=== PATIENT | female | born 1955 | race Caucasian/White ===

== ENCOUNTER 2023-01-13 08:25 | Inpatient (IN) ==
--- NOTE | 2022-12-31 08:46 | PAT Medication Instructions ---
Medication Instructions Date of Service December 31, 2022 Home Medications allopurinol 100 mg tablet 100 mg PO HS baclofen 20 mg tablet 20 mg PO BID PRN Muscle Pain famotidine 40 mg tablet 40 mg PO BID fenofibrate nanocrystallized 145 mg tablet (Tricor) 145 mg PO HS hydrochlorothiazide 25 mg tablet 25 mg PO HS hydroxyzine HCl 10 mg tablet 10 mg PO BID insulin detemir U-100 100 unit/mL (3 mL) subcutaneous pen (Levemir FlexPen) 25 unit subcut HS lamotrigine 250 mg tablet,extended release 24 hr 250 mg PO HS levothyroxine 112 mcg tablet 112 mcg PO HS liraglutide 0.6 mg/0.1 mL (18 mg/3 mL) subcutaneous pen injector (Victoza 2-Omar) 0.6 mg subcut QAM melatonin 10 mg tablet 20 mg PO HS PRN Sleep metoprolol succinate 100 mg tablet,extended release 24 hr 100 mg PO HS pioglitazone 15 mg tablet 15 mg PO HS rosuvastatin 20 mg tablet 20 mg PO HS sertraline 200 mg capsule 200 mg PO HS STOP taking 48 hours before surgery fenofibrate nanocrystallized 145 mg tablet (Tricor) 145 mg PO HS DO NOT take the morning of surgery baclofen 20 mg tablet 20 mg PO BID PRN Muscle Pain liraglutide 0.6 mg/0.1 mL (18 mg/3 mL) subcutaneous pen injector (Victoza 2-Omar) 0.6 mg subcut QAM hydroxyzine HCl 10 mg tablet 10 mg PO BID Take morning of surgery With a small sip of water, OTHERWISE NOTHING TO EAT OR DRINK AFTER MIDNIGHT: famotidine 40 mg tablet 40 mg PO BID Take evening before surgery allopurinol 100 mg tablet 100 mg PO HS baclofen 20 mg tablet 20 mg PO BID PRN Muscle Pain (if needed) famotidine 40 mg tablet 40 mg PO BID hydrochlorothiazide 25 mg tablet 25 mg PO HS hydroxyzine HCl 10 mg tablet 10 mg PO BID insulin detemir U-100 100 unit/mL (3 mL) subcutaneous pen (Levemir FlexPen) 25 unit subcut HS lamotrigine 250 mg tablet,extended release 24 hr 250 mg PO HS levothyroxine 112 mcg tablet 112 mcg PO HS melatonin 10 mg tablet 20 mg PO HS PRN Sleep (if needed) metoprolol succinate 100 mg tablet,extended release 24 hr 100 mg PO HS pioglitazone 15 mg tablet 15 mg PO HS rosuvastatin 20 mg tablet 20 mg PO HS sertraline 200 mg capsule 200 mg PO HS Other Notes If you have any questions please call us at [phone] or [phone] or [phone] or [phone]
--- NOTE | 2022-12-31 12:57 | Anesthesiology Consultation ---
Date of Service December 31, 2022 Assessment & Plan (1) Encounter for pre-operative examination: - Check BSG AM DOS - COVID screening: Per assessment on 12/31: No known COVID-19 positive contacts or current COVID-19 related symptoms. Travel screen negative. Patient Covid positive 10/10/22 (home test)- symptoms at time of body aches, cough, loss of smell/taste > resolved. DOS greater than 90 days after Covid positive infection. At surgeon discretion if preop Covid testing being done. - Cardiology visit (11/07/22): "Prior to this visit metoprolol succinate has been increased to 100mg daily for complaints of palpitations/SVT. She did note improvement.. ECG reviewed. This indicates sinus rhythm with heart rate of 71. Poor Rwave progression is noted but not new.. Palpitations/SVT remained well controlled with use of beta amanda.. No evidence of volume overload or heart failure.. An echocardiogram will be obtained prior to her next office visit to reevaluate EF and wall motion." 1 year follow-up recommended. Chart Review Chart Review: Acceptable Risk for Surgery and Patient seen in Pre Admission Testing Teaching & Discussion Pre-Anesthesia Teaching/Discussion Notes: Instructed NPO after midnight before surgery,except medications with 15 cc of water. Medication instructions provided according to the PAT guidelines. History Surgery Operation Date: 01/13/23 10:35 Proposed Procedures p L4-L5 Decompression and Fusion, Spinal Cord Monitoring - Richard Oconnor DO Height/Weight Height: 5 ft 5 in Weight: 113.2 kg Allergies Allergy/AdvReac Type Severity Reaction Status Date / Time povidone-iodine Allergy Intermediate blisters Verified 12/31/22 08:47 [From Betadine] (with prolonged use) Medications Home Medications Medication Instructions Recorded Confirmed Last Taken allopurinol 100 mg tablet 100 mg PO HS 12/30/22 12/30/22 Unknown baclofen 20 mg tablet 20 mg PO BID PRN Muscle Pain 12/30/22 12/30/22 Unknown famotidine 40 mg tablet 40 mg PO BID 12/30/22 12/30/22 Unknown fenofibrate nanocrystallized 145 145 mg PO HS 12/30/22 12/30/22 Unknown mg tablet (Tricor) hydrochlorothiazide 25 mg tablet 25 mg PO HS 12/30/22 12/30/22 Unknown hydroxyzine HCl 10 mg tablet 10 mg PO BID 12/30/22 12/30/22 Unknown insulin detemir U-100 100 unit/mL 25 unit subcut HS 12/30/22 12/30/22 Unknown (3 mL) subcutaneous pen (Levemir FlexPen) lamotrigine 250 mg tablet,extended 250 mg PO HS 12/30/22 12/30/22 Unknown release 24 hr levothyroxine 112 mcg tablet 112 mcg PO HS 12/30/22 12/30/22 Unknown liraglutide 0.6 mg/0.1 mL (18 mg/3 0.6 mg subcut QAM 12/30/22 12/30/22 Unknown mL) subcutaneous pen injector (Victoza 2-Omar) melatonin 10 mg tablet 20 mg PO HS PRN Sleep 12/30/22 12/30/22 Unknown metoprolol succinate 100 mg 100 mg PO HS 12/30/22 12/30/22 Unknown tablet,extended release 24 hr pioglitazone 15 mg tablet 15 mg PO HS 12/30/22 12/30/22 Unknown rosuvastatin 20 mg tablet 20 mg PO HS 12/30/22 12/30/22 Unknown sertraline 200 mg capsule 200 mg PO HS 12/30/22 12/30/22 Unknown Past Medical History Medical History Anxiety and depression Arthritis Bipolar disorder Chronic kidney disease, stage 3 Diabetes mellitus, type 2 IDDM GERD (gastroesophageal reflux disease) History of COVID-19 Dx 10/10/22 (home test), symptoms resolved Hyperlipidemia Hypothyroidism Migraine SVT (supraventricular tachycardia) Follows with Lily Corrales Exercise / Class Metabolic Activity II 4-5 Yardwork/Stairs/Walk up hill (one FS (no CP, no SOB)) Past Family History Family History Other No family history of adverse response to anesthesia Past Surgical History Surgical History Fusion of spine cervical (good rom) H/O total hysterectomy History of appendectomy History of arthroscopy R/L knee History of bunionectomy + neuroma removed from right History of section x2 History of cholecystectomy History of colonoscopy History of ear surgery Right ear x5 (fistulas removed) History of tonsillectomy and adenoidectomy History of tooth extraction Neuroma removed left foot Past Anesthesia History No Hx of Anesthesia Complications and No Family Hx of Anesthesia Complications History of PONV No Hx of Motion Sickness and History of PONV (Single episode) Social History Smoking Status: Never smoker Do You Dip or Chew Tobacco: No Hx Alcohol Use: No Hx Substance Use: No substance use type: does not use Review of Systems Patient denies chest pain, shortness of breath, dyspnea on exertion, fever, chills, cough, wheezing, palpitations. Physical Exam Vital Signs VITALS BP 114/71 P 83 TEMP 98.1 SP02 96%RA RESP 16 PHYSICAL Full cervical extension range of motion. Full TMJ range of motion. TMD 4 finger breaths Mallampati Score 1 Dentition: intact Lungs: clear throughout to auscultation Cardiac: regular rate and rhythm, no murmurs noted Spine: normal Carotid arteries: negative bruit Extremities: no LE edema Lab Results Anesthesia Preop Results Results Anesthesia Widget: WBC 4.68 K/ul (4.8-10.8) L 12/31/22 Hgb 12.7 g/dl (12.0-16.0) 12/31/22 Hct 39.1 % (37.0-47.0) 12/31/22 Plt 267 K/uL (130-400) 12/31/22 Na 138 mmol/L (136-145) 12/31/22 K 3.9 mmol/L (3.5-5.1) 12/31/22 Cl 103 mmol/L (98-107) 12/31/22 CO2 30 mmol/L (21-32) 12/31/22 BUN 28 mg/dl (6-23) H 12/31/22 Creat 1.42 mg/dl (0.6-1.2) H 12/31/22 Glucose Level 139 mg/dl (70-99(Fasting)) H 12/31/22 PT 10.7 Seconds (9.0-12.0) 12/31/22 PTT 28.3 Seconds (21.0-31.0) 12/31/22 INR 1.0 (0.9-1.1) 12/31/22 HA1c 6.3 % (4.5-5.6) H 12/31/22 Urine Color Dark Yellow 12/31/22 Urine Appearance Clear (Clear) 12/31/22 Urine pH 6.5 (4.5-7.5) 12/31/22 Urine Specific Carl[place] 1.022 (1.000-1.030) 12/31/22 Urine Protein Negative (Negative) 12/31/22 Urine Glucose (UA) Negative (Negative) 12/31/22 Urine Ketones Trace (Negative) H 12/31/22 Urine Blood Negative (Negative) 12/31/22 Urine Nitrite Negative (Negative) 12/31/22 Urine Bilirubin Negative (Negative) 12/31/22 Urine Urobilinogen Negative (Negative) 12/31/22 Urine Leukocyte Esterase 2+ (Negative) H 12/31/22 Urine WBC (Auto) >30 /hpf (0-5) H 12/31/22 Urine RBC (Auto) 5-10 /hpf (0-4) H 12/31/22 Urine Hyaline Casts (Auto) 5-10 /lpf (0-5) H 12/31/22 Urine Epithelial Cells (Auto) 0-5 /lpf (0-5) 12/31/22 Urine Bacteria (Auto) Negative (Negative) 12/31/22 Blood Type O Positive 12/31/22 Antibody Screen NEGATIVE 12/31/22 Testing Electrocardiogram Date: 11/07/22 SR at 71bpm. PRWP. Chest X-Ray Date: 12/31/22 FINDINGS: PA and lateral chest radiographs are obtained. No prior studies are available for comparison at the time of dictation. The cardiomediastinal silhouette is unremarkable noting atherosclerotic calcification of the thoracic aorta. The lungs and pleural spaces are clear. There is no pneumothorax. The skeletal structures are osteopenic. The bony thorax appears intact. Fusion hardware is seen in the lower cervical spine. Cholecystectomy clips are noted in the right upper quadrant. IMPRESSION: No active disease in the chest. Other Testing L3is Monitor Date: 12/23/21 "[place] [address] (70), 0 A-fib/flutter/AT, PACs (<0.01%), PVCs (<0.01%), 0 pauses, 0 NSVT, 0 SVT, no symptoms" per 11/2022 cardiology office visit note. Attempts to obtain official report unsuccessful.
[~2023-01-13 08:25] MED LIST: ACETAMINOPHEN 500 MG TAB PO SCH; CeleBREX 200 MG CAP PO SCH; DEXAMETHASONE SOD INJ 4 MG/ML VIAL ONE; LIDOCAINE 2% 2 ML VIAL/AMP(20MG/ML) INFIL ONE; LR 15ML/HR IV SCH; LR 60ML/HR IV SCH; MIDAZOLAM HCL 1 MG/ML 2ML VIAL ONE; ONDANSETRON INJ 2 MG/ML 2 ML VIAL ONE; PROPOFOL IV EMULSION 10 MG/ML 20 ML VIAL IV ONE; ROCURONIUM BROMIDE 10 MG/ML 5 ML VIAL IV ONE; SUGAMMADEX SODIUM 200 MG/2 ML VIAL IV ONE; ceFAZolin 2000MG 2,000 MG/15 ML SYR IV SCH; fentaNYL citrate PF 100 MCG/2 ML VIAL ONE
--- NOTE | 2023-01-13 08:48 | History & Physical Bridge Note ---
Date of Service January 13, 2023 History & Physical Bridge Note I have examined the patient, reviewed the History & Physical and in the interval since the performance of the History & Physical I have noted the following changes of clinical significance: no changes noted
--- NOTE | 2023-01-13 08:49 | History & Physical Report ---
Date of Service January 13, 2023 Assessment & Plan (1) Neurogenic claudication due to lumbar spinal stenosis: Plan: L4-L5 decompression and fusion History of Present Illness Chief Complaint: Back and leg pain Primary Care Provider: EVA Edmonds This is a 67-year-old female presents with chronic persistent back and leg pain after failing extensive course of nonoperative care is here for surgical intervention. Allergies Allergy/AdvReac Type Severity Reaction Status Date / Time povidone-iodine Allergy Intermediate blisters Verified 01/13/23 08:40 [From Betadine] (with prolonged use) Home Medications Medication Instructions Recorded Confirmed Type allopurinol 100 mg tablet 100 mg PO HS 12/30/22 01/13/23 History baclofen 20 mg tablet 20 mg PO BID PRN Muscle Pain 12/30/22 01/13/23 History famotidine 40 mg tablet 40 mg PO BID 12/30/22 01/13/23 History fenofibrate nanocrystallized 145 145 mg PO HS 12/30/22 01/13/23 History mg tablet (Tricor) hydrochlorothiazide 25 mg tablet 25 mg PO HS 12/30/22 01/13/23 History hydroxyzine HCl 10 mg tablet 10 mg PO BID 12/30/22 01/13/23 History insulin detemir U-100 100 unit/mL 25 unit subcut HS 12/30/22 01/13/23 History (3 mL) subcutaneous pen (Levemir FlexPen) lamotrigine 250 mg tablet,extended 250 mg PO HS 12/30/22 01/13/23 History release 24 hr levothyroxine 112 mcg tablet 112 mcg PO HS 12/30/22 01/13/23 History liraglutide 0.6 mg/0.1 mL (18 mg/3 0.6 mg subcut QAM 12/30/22 01/13/23 History mL) subcutaneous pen injector (Victoza 2-Omar) melatonin 10 mg tablet 20 mg PO HS PRN Sleep 12/30/22 01/13/23 History metoprolol succinate 100 mg 100 mg PO HS 12/30/22 01/13/23 History tablet,extended release 24 hr pioglitazone 15 mg tablet 15 mg PO HS 12/30/22 01/13/23 History rosuvastatin 20 mg tablet 20 mg PO HS 12/30/22 01/13/23 History sertraline 200 mg capsule 200 mg PO HS 12/30/22 01/13/23 History Past Med/Surg History Medical History Anxiety and depression Arthritis Bipolar disorder Chronic kidney disease, stage 3 Diabetes mellitus, type 2 IDDM GERD (gastroesophageal reflux disease) History of COVID-19 Dx 10/10/22 (home test), symptoms resolved Hyperlipidemia Hypothyroidism Migraine SVT (supraventricular tachycardia) Follows with Lily Corrales Surgical History Fusion of spine cervical (good rom) H/O total hysterectomy History of appendectomy History of arthroscopy R/L knee History of bunionectomy + neuroma removed from right History of section x2 History of cholecystectomy History of colonoscopy History of ear surgery Right ear x5 (fistulas removed) History of tonsillectomy and adenoidectomy History of tooth extraction Neuroma removed left foot Family History Other No family history of adverse response to anesthesia Social History Smoking Status: Never smoker Second Hand Exposure: Yes (as a child); Do You Dip or Chew Tobacco: No; Hx Alcohol Use: No Hx Substance Use: No Preferred Language: Sammarinese Medical Supply Technician Required: No Beliefs That Will Affect Care: None Current Living Situation: Spouse Feels Safe at Home: Yes Safety Concerns: Feels Safe At This Time Assistive Devices: Glasses Physical Exam Physical Exam: Patient is alert and oriented Heart regular rhythm Lungs clear
[2023-01-13] MEDS ORDERED: BUPIVACAINE 0.25% PF 30 ML VIAL ONE (08:58)
[2023-01-13] MEDS ORDERED: BUPIVACAINE/EPINEPHRINE 0.25% 1:200,000 30 ML VIAL ONE (08:59)
[2023-01-13] MEDS ORDERED: ceFAZolin 330 MG/ML 1 GM VIAL ONE (08:59)
[2023-01-13] MEDS ORDERED: ePHEDrine sulfate 50 MG/ML AMP IV PRN (09:06)
[2023-01-13] MEDS ORDERED: ATROPINE SULFATE 0.1 MG/ML 10ML SYR IV PRN (09:06)
[2023-01-13] MEDS ORDERED: ONDANSETRON INJ 2 MG/ML 2 ML VIAL IV PRN ×2 (09:06→12:53)
[2023-01-13] MEDS ORDERED: FLOSEAL HEMOSTATIC MATRIX 10ML TOP ONE (10:05)
[2023-01-13] MEDS ORDERED: ePHEDrine sulfate 50 MG/ML SYR ONE (10:15)
[2023-01-13] MEDS ORDERED: DEXAMETHASONE SOD INJ 4 MG/ML VIAL ONE (10:21)
--- NOTE | 2023-01-13 11:08 | Fluoroscopy Report ---
FL lumbar spine 2-3V CLINICAL HISTORY: L4-5 DFI TECHNIQUE: 2 views were obtained with the C-arm in the OR with the above procedure. Total fluoroscopy time was 19.1 seconds. Radiation dose was 20.39 mGy. Comparison: None available at the time of this dictation. FINDINGS/IMPRESSION: Intraoperative images were obtained of L4-L5 decompression and fusion. Please correlate with intraoperative fluoroscopy and operative report. ACT 112: Negative or not required by law. Electronically signed by: Livan Lucero M.D. 01/13/2023 11:07 AM
--- NOTE | 2023-01-13 11:09 | Operative Report ---
Post Operative Report Pre & Post Diagnosis Operation Date: 01/13/23 09:35 Pre-Op Diagnosis: Lumbar spinal stenosis with neurogenic claudication Spondylolisthesis L4-5 Morbid obesityPost-Op Diagnosis: Same I identified the patient and participated in the time-out.: Yes Procedure Operation Date: 01/13/23 09:35 Actual Procedures 1. Lumbar decompression bilateral medial facetectomies and foraminotomies L3-L4 L4-5. #2 posterior spinal fusion L4-5 per #3 placement posterior instrumentation L4-5. #4 interbody fusion L4-5 per #5 placement of Spira 14 x 26 mm cage at L4-5. #6 placement locally harvested morselized autograft and posterior gutters. #7 placement I factor amount of the test in the interbody space and posterior gutters. Surgeon Richard Oconnor, DO Telecasting Technician Ruthy Smalls Estimated Blood Loss 100 Findings See Below The patient is 5 foot 5 weighing over 112 kg with a BMI in excess of 41. The patient's body habitus did contribute to significant technical difficulty required deepest retractors longer instruments in order to perform her procedure. This at least 50% increased operative time. Specimens none Indications This is a 67-year-old female who presents above-mentioned diagnosis after failing since course of nonoperative care is here for surgical invention. Description of Procedure Patient was met with identified informed consent obtained. Patient was then taken to the operative suite underwent ablation placed in a prone position the [place] table top Sergey frame. All bony promises well-padded eyes inspected to ensure no external pressure placed monitor at this point lumbar spine was prepped and draped in a sterile fashion. Sharp dissection with the assistance of Bovie cautery performed down to and exposing the lamina and transverse processes of L4-L5 bilaterally. From caudal to cephalad fashion complete laminectomy of L4 partial laminectomy L3 was performed including bilateral medial facetectomies and foraminotomies addressing severe spinal stenosis. Pedicle screws were then placed in L4-5 bilaterally with assistance of fluoroscopy and appropriate sized crystal placed. By way of transforaminal approach on the left complete discectomy of L4-L5 was performed endplates curetted to subcortically bone and a 14 x 26 mm Spira cage with I factor tapped in position. The rods were then compressed locked into final position bilaterally. The transverse processes of L4-5 burred to subcortical bleeding bone. I factor bone of the test and locally harvested morselized autograft was placed in the posterior gutters. 15 round JEANNETTE drain inserted. The incision was then closed with 1 Vicryl to fascia 2-0 Vicryl subcutaneously and 4 Monocryl for final skin closure. Steri-Strips sterile dressing placed. Patient awakened taken to PACU in stable condition. Please note spinal cord monitoring visualized at the procedure no changes noted. Lastly Ruthy Smalls was present at the entire surgery involved the patient positioning complex portions of the surgery and final skin closure. I attest to the content of the Intraoperative Record and any orders documented therein. Any exceptions are noted below.
[2023-01-13] MEDS: fentaNYL citrate PF 100 MCG/2 ML VIAL IV PRN ×4 (11:36→11:51)
[2023-01-13] MEDS ORDERED: HYDROmorphone INJ 0.5 MG/0.5 ML SYR ONE ×4 (11:51→12:04)
[2023-01-13] MEDS: HYDROmorphone INJ 2 MG/ML SYR/VIAL IV PRN ×4 (11:52→12:07)
[2023-01-13] MEDS ORDERED: LORazepam 2 MG/1 ML VIAL ONE (12:19)
[2023-01-13] MEDS ORDERED: LORazepam 2 MG/1 ML VIAL IM STA (12:22)
--- NOTE | 2023-01-13 12:30 | Anesthesiology Progress Note ---
Date of Service January 13, 2023 Anesthesia Post Procedure Vital Signs Vital Signs: Temp Pulse Pulse Resp BP Pulse Ox O2 Del Method 01/13/23 12:20 78 14 129/70 97 Nasal Cannula 01/13/23 12:10 70 16 118/55 L 97 Nasal Cannula 01/13/23 12:00 66 9 L 128/69 99 Nasal Cannula 01/13/23 11:50 69 14 139/75 98 Nasal Cannula 01/13/23 11:40 66 12 144/69 H 97 Oxymask 01/13/23 11:30 80 12 118/64 100 Oxymask 01/13/23 11:23 96.8 F L 81 12 143/62 H 100 Oxymask 01/13/23 09:03 97.9 F 78 18 148/64 H 98 Room Air O2 Flow Rate 01/13/23 12:20 3 01/13/23 12:10 3 01/13/23 12:00 3 01/13/23 11:50 3 01/13/23 11:40 6 01/13/23 11:30 6 01/13/23 11:23 12 01/13/23 09:03 Pain Intensity Back: Pain Intensity: 8 Transfer of Care Handoff Completed per policy Notes Mental Status: alert / awake / arousable and participated in evaluation Patient Amnestic to Procedure: Yes Nausea / Vomiting: adequately controlled Pain: adequately controlled and improving with treatment Airway Patency, RR, SpO2: stable & adequate BP & HR: stable & adequate Hydration State: stable & adequate Anesthetic Complications: no major complications apparent and Pt Satisfied with anesthetic care
[2023-01-13] MEDS ORDERED: SOD PHOSPHATE/SOD BIPHOSPHATE ENEMA 132 ML BTL PR PRN (12:53)
[2023-01-13] MEDS ORDERED: FAMOTIDINE 20 MG TAB PO PRN (12:53)
[2023-01-13] MEDS ORDERED: PHARMACY GLYCEMIC MGMT CONSULT PRN (12:53)
[2023-01-13] MEDS ORDERED: LORazepam 0.5 MG TAB PO PRN (12:53)
[2023-01-13] MEDS ORDERED: DO NOT ADMINISTER FLU VACCINE PRN (12:53)
[2023-01-13] MEDS ORDERED: PROMETHAZINE HCL 12.5 MG in SODIUM CHLORIDE 0.9% 50 ML IV PRN (12:53)
[2023-01-13] MEDS ORDERED: bisacodyL 10 MG SUPP PR PRN (12:53)
[2023-01-13] MEDS ORDERED: HYDROmorphone INJ 0.5 MG/0.5 ML SYR IV PRN (12:53)
[2023-01-13] MEDS ORDERED: ACETAMINOPHEN 1,000 MG/100 ML VIAL IV PRN (12:53)
[2023-01-13] MEDS ORDERED: NALOXONE HCL 0.4 MG/1 ML VIAL/CARP IV PRN (12:53)
[2023-01-13] MEDS ORDERED: diphenhydrAMINE Capsule 25 MG CAP PO PRN (12:53)
[2023-01-13] MEDS ORDERED: hydrOXYzine HCl 25 MG TAB PO PRN (12:53)
[2023-01-13] MEDS ORDERED: ONDANSETRON 4 MG OD TAB PO PRN (12:53)
[2023-01-13] MEDS ORDERED: traMADol HCL 50 MG TABLET PO PRN (12:53)
[2023-01-13] MEDS ORDERED: DO NOT ADMINISTER PNEUMOCOCCAL VACCINE PRN (12:53)
[2023-01-13] MEDS ORDERED: LORazepam 2 MG/1 ML VIAL IV PRN (12:53)
[2023-01-13] MEDS ORDERED: ACETAMINOPHEN 500 MG TAB PO PRN (12:53)
[2023-01-13] MEDS ORDERED: METOCLOPRAMIDE HCL INJ 5 MG/ML 2 ML VIAL IV PRN (12:53)
[2023-01-13] MEDS ORDERED: ALUMINUM/MAGNESIUM SUSP 30 ML UDC PO PRN (12:53)
[2023-01-13] MEDS ORDERED: MAGNESIUM HYDROXIDE SUSP 30 ML UDC PO PRN (12:53)
[2023-01-13] MEDS: SODIUM CHLORIDE 0.9% 1000ML 1,000 ML IV SCH ×2 (13:26→20:10)
[2023-01-13] MEDS ORDERED: GLUCOSE 10 TAB/TUBE PO PRN (14:00)
[2023-01-13] MEDS ORDERED: GLUCOSE 40% GEL 15 GM TUBE PO PRN (14:00)
[2023-01-13] MEDS ORDERED: GLUCAGON FOR INJ 1 MG VIAL IM PRN (14:00)
[2023-01-13] MEDS ORDERED: NovoLIN-N (NPH) PER UNIT CHARGE SQ ONE (14:00)
[2023-01-13] MEDS ORDERED: DEXTROSE 50% 50 ML SYRINGE IV PRN (14:00)
[2023-01-13] MEDS ORDERED: CARBOHYDRATES FOR HYPOGLYCEMIA PO PRN (14:00)
--- NOTE | 2023-01-13 14:07 | Consultation ---
Date of Consultation January 13, 2023 Assessment & Plan (1) Neurogenic claudication due to lumbar spinal stenosis: (2) Diabetes mellitus, type 2: (3) HTN (hypertension): (4) Hypothyroidism: (5) Chronic kidney disease, stage 3: (6) GERD (gastroesophageal reflux disease): Plan 67 year old female that presented to the [facility] today for an elective procedure under the care of Dr. Oconnor after failed conservative management for persistent back pain. She underwent an L4-L5 decompression and fusion surgery today. Intra-operatively, patient had 100 EBL. In the PACU, patient received Fentanyl 100mcg and Ativan 2 mg for pain. Pt is lying in her hospital bed in no apparent distress. She is snoring and somnolent; difficult to arouse, but once aroused she is able to answer some simple questions. She is on 3LNC and SpO2 93- 94%, will continue continuous pulse ox until more awake. Pt at bedside and able to answer all questions. Patient appears more puffy compared to typical presentation; not unusual postoperative. Patient does not wear a CPAP at home at baseline. Additional PMH includes: Gout, IDDM2, HTN, HLD, Hypothyroidism, and depression. Neurogenic claudication due to lumbar spinal stenosis: POD#0 s/p L4-L5 decompression fusion with Dr. Oconnor. Per ortho for pain control, wound care, anticoagulation and activities. Monitor H&H, preop hemoglobin 12.7 from 12/31 EBL 100 mL continue incentive spirometry when awake PT/OT when appropriate Diabetes mellitus type 2: Insulin-dependent Preop A1c 6.3 Takes Levemir, continue Takes Actos, and Victoza; hold while inpatient FSBS ACHS SSI while inpatient HTN: Takes HCTZ and metoprolol; continue Normotensive postoperatively HLD: Takes rosuvastatin; continue Hypothyroidism: Takes levothyroxine; continue Follow TSH as an outpatient CKD stage III: Preop creatinine 1.42; trend with a.m. labs GERD: Takes famotidine; continue Gout: Takes allopurinol; continue Depression: Takes sertraline; continue Disposition: PCP: EVA Contreras CODE STATUS: Full code VTE prophylaxis: Per admitting team I spent a total of 60 minutes coordinating, documenting, and providing care for this patient excluding time spent in the performance of separately billed services. All of the aforementioned completed while collaborating with the assigned attending physician for a full treatment plan. Please see their addendum for further details. Supervising Physician Co-Signing Physician Notes Ms. Colby is a 67 year old female with pmhx (per chart and spouse) of morbid obesity (BMI 41), SVT, IDDM-II (associated with HTN and HLP, c/b nephropathy), Hypothyroidism, CKD III b, GERD, gout, lumbar spinal stenosis with neurogenic claudication, Bipolar d/o and depression. She presented for planned elective surgery with Dr. Oconnor. She is POD # 0 s/p L4-L5 decompression and fusion with EBL of 100 mL. Post op she is recovering well. She is somnolent d/t medications (Fentanyl and Ativan) but arousable. She denies malaise, PERES, lightheadedness, f/c/n/v, CP, sob, and abdominal pain. She is snoring quite dramatically. Per she typically snores but not like this. She does not use NIPPV at home. PE Gen: Somnolent but arousable. NAD. Non-toxic. Obese. Head: NC AT Eyes: anicteric sclera, no conjunctival injection Nose: normal, patent nares Mouth: MMM Neck: supple, trachea midline. CV: RRR S1 S2 Pulm: CTA b/l anteriorly GI/abd: +BS, soft, NT, ND, no guarding. + obese. MSK: normal bulk and tone Ext: 1+ edema in all 4 extremities. Strong radial and dorsalis pedis pulses Neuro: moves all 4 limbs spontaneously, somnolent but arousable, no focal deficits Skin: visible skin is warm, dry, and without rash. Pt was not fully undressed for exam. Surgical site not inspected. # Spinal stenosis: POD #0 s/p L4-5 decompression, fusion standard post op care per surgical team DVT PPX per surgical team # somnolence: iatrogenic continuous pulse ox # IDDM: continue home regimen (Levemir 25 units hs, Liraglutide 0.6 mg sc q am, Pioglitazone 15 mg hs) once awake and taking po CDI for now # HTN: normotensive, continue home regimen (HCTZ 25 mg po hs, Metoprolol 100 mg po hs), analgesia # HLP: continue statin therapy, fenofibrate 145 mg hs, no indication to check a lipid panel at this time # Hypothyroidism: continue levothyroxine 112 mcg daily, no indication to check a TSH at this time # Bipolar d/o: stable, well controlled. Continue Lamotrigine 250 mg hs, Sertraline 200 mg hs Rest per attested note above History of Present Illness Requesting Physician: Dr. Oconnor Reason for Consultation: Post operative medical consultation Attending Physician: Richard Oconnor, DO History of Present Illness Ms. Colby is a 67 year old female that presented to the [facility] today for an elective procedure under the care of Dr. Oconnor after failed conservative management for persistent back pain. She underwent an L4-L5 decompression and fusion surgery today. Intra-operatively, patient had 100 EBL. In the PACU, patient received Fentanyl 100mcg and Ativan 2 mg for pain. Pt is lying in her hospital bed in no apparent distress. She is snoring and somnolent; difficult to arouse, but once aroused she is able to answer some simple questions. She is on 3LNC and SpO2 93-94%, will continue continuous pulse ox until more awake. Pt at bedside and able to answer all questions. Patient appears more puffy compared to typical presentation; not unusual postoperative. Patient does not wear a CPAP at home at baseline. Additional PMH includes: Gout, IDDM2, HTN, HLD, Hypothyroidism, and depression. [facility] Hospitalist service was consulted for post-operative medical management. Please see A/P for further details. Please contact [facility] Hospitalist service via [place] Text 27/01 with any questions. Allergies Allergy/AdvReac Type Severity Reaction Status Date / Time povidone-iodine Allergy Intermediate blisters Verified 01/13/23 08:40 [From Betadine] (with prolonged use) Home Medications Medication Instructions Recorded Confirmed Type allopurinol 100 mg tablet 100 mg PO HS 12/30/22 01/13/23 History baclofen 20 mg tablet 20 mg PO BID PRN Muscle Pain 12/30/22 01/13/23 History famotidine 40 mg tablet 40 mg PO BID 12/30/22 01/13/23 History fenofibrate nanocrystallized 145 145 mg PO HS 12/30/22 01/13/23 History mg tablet (Tricor) hydrochlorothiazide 25 mg tablet 25 mg PO HS 12/30/22 01/13/23 History hydroxyzine HCl 10 mg tablet 10 mg PO BID 12/30/22 01/13/23 History insulin detemir U-100 100 unit/mL 25 unit subcut HS 12/30/22 01/13/23 History (3 mL) subcutaneous pen (Levemir FlexPen) lamotrigine 250 mg tablet,extended 250 mg PO HS 12/30/22 01/13/23 History release 24 hr levothyroxine 112 mcg tablet 112 mcg PO HS 12/30/22 01/13/23 History liraglutide 0.6 mg/0.1 mL (18 mg/3 0.6 mg subcut QAM 12/30/22 01/13/23 History mL) subcutaneous pen injector (Victoza 2-Omar) melatonin 10 mg tablet 20 mg PO HS PRN Sleep 12/30/22 01/13/23 History metoprolol succinate 100 mg 100 mg PO HS 12/30/22 01/13/23 History tablet,extended release 24 hr pioglitazone 15 mg tablet 15 mg PO HS 12/30/22 01/13/23 History rosuvastatin 20 mg tablet 20 mg PO HS 12/30/22 01/13/23 History sertraline 200 mg capsule 200 mg PO HS 12/30/22 01/13/23 History oxycodone 5 mg tablet 5 mg PO Q6H PRN pain #30 tabs 01/13/23 Rx tramadol 50 mg tablet 50 mg PO Q6H PRN pain, moderate 01/13/23 Rx #30 tabs Patient History Medical History Anxiety and depression Arthritis Bipolar disorder Chronic kidney disease, stage 3 Diabetes mellitus, type 2 IDDM GERD (gastroesophageal reflux disease) History of COVID-19 Dx 10/10/22 (home test), symptoms resolved HTN (hypertension) Hyperlipidemia Hypothyroidism Migraine SVT (supraventricular tachycardia) Follows with [facility] Surgical History Fusion of spine cervical (good rom) H/O total hysterectomy History of appendectomy History of arthroscopy R/L knee History of bunionectomy + neuroma removed from right History of section x2 History of cholecystectomy History of colonoscopy History of ear surgery Right ear x5 (fistulas removed) History of tonsillectomy and adenoidectomy History of tooth extraction Neuroma removed left foot Family History Other No family history of adverse response to anesthesia Social History Smoking Status: Never smoker Second Hand Exposure: Yes (as a child); Do You Dip or Chew Tobacco: No; Hx Alcohol Use: No Hx Substance Use: No Preferred Language: German Inventory Control Specialist Required: No Beliefs That Will Affect Care: None Current Living Situation: Spouse Feels Safe at Home: Yes Safety Concerns: Feels Safe At This Time Assistive Devices: Glasses Review of Systems Review of Systems: Neuro: (-) Falls, trauma, slurred speech HEENT: (-) PERES, dizziness, dysphagia, visual or auditory changes CV: (-) CP, palpitations, swelling Resp: (-) SOB GI: (-) appetite changes, N/V/D, bowel changes : (-) urinary changes Skin: (-) rashes Psych: (-) anxiety, depression Physical Exam Physical Exam: See Dr. Purvis's physical examination in the addendum section for details Results & Data Vital Signs (Past 12 Hours) Vital Signs Temp Pulse Pulse Resp BP Pulse Ox O2 Del Method 01/13/23 13:48 36.4 C L 79 18 124/66 95 Nasal Cannula 01/13/23 13:22 36.7 C 79 18 121/54 L 93 Nasal Cannula 01/13/23 13:06 36.6 C 79 12 142/70 H 95 Nasal Cannula 01/13/23 12:30 36.6 C 73 12 119/60 99 Nasal Cannula 01/13/23 12:20 78 14 129/70 97 Nasal Cannula 01/13/23 12:10 70 16 118/55 L 97 Nasal Cannula 01/13/23 12:00 66 9 L 128/69 99 Nasal Cannula 01/13/23 11:50 69 14 139/75 98 Nasal Cannula 01/13/23 11:40 66 12 144/69 H 97 Oxymask 01/13/23 11:30 80 12 118/64 100 Oxymask 01/13/23 11:23 36.0 C L 81 12 143/62 H 100 Oxymask 01/13/23 09:03 36.6 C 78 18 148/64 H 98 Room Air O2 Flow Rate 01/13/23 13:48 3 01/13/23 13:22 3 01/13/23 13:06 2 01/13/23 12:30 3 01/13/23 12:20 3 01/13/23 12:10 3 01/13/23 12:00 3 01/13/23 11:50 3 01/13/23 11:40 6 01/13/23 11:30 6 01/13/23 11:23 12 01/13/23 09:03 Diagnostic Findings Lumbar Spine X-Ray 01/13/23 09:35 FL lumbar spine 2-3V CLINICAL HISTORY: L4-5 DFI TECHNIQUE: 2 views were obtained with the C-arm in the OR with the above procedure. Total fluoroscopy time was 19.1 seconds. Radiation dose was 20.39 mGy. Comparison: None available at the time of this dictation. FINDINGS/IMPRESSION: Intraoperative images were obtained of L4-L5 decompression and fusion. Please correlate with intraoperative fluoroscopy and operative report. Electronically signed by: Livan Lucero M.D. 01/13/2023 11:07 AM
[2023-01-13] MEDS: INSULIN ASPART PER UNIT CHARGE SC SCH ×3 (14:28→21:11)
--- NOTE | 2023-01-13 14:39 | Pharmacy Report ---
Pharmacy Glycemic Short Note 2 - Date of Service January 13, 2023 - Glycemic Short BSG Results (Last 24 hours): 01/13/23 01/13/23 01/13/23 09:04 11:25 13:38 POC Glucose 123 H 131 H 140 H OUTPATIENT ANTIDIABETIC REGIMEN: * Levemir 25 units HS * Actos 15 mg PO daily * Victoza 0.6 mg SQ daily * HbA1C = 6.3% (12/31/22) ASSESSMENT: * Ms Colby is a 67 y/o F with a PMH of T2DM who presents for spinal surgery. * Preop BSG was 123 mg/dL and postop BSG was 140 mg/dL. Patient is sedated after surgery. * Patient received dexamethasone 12 mg IV during surgery. * Since patient was sedated, will hold NPH. Move Lantus to dinnertime with a higher dose available for BSGs trending upwards after steroid administration. * Novolog weight-based stress 3 for steroid coverage. PLAN FOR INPATIENT GLYCEMIC CONTROL: * Hold outpatient oral diabetes medications * Basal insulin * Lantus 25 units SQ HS starting at dinner tonight (35 units if BSG > 160 mg/dL) * Bolus insulin * NovoLog per scale ACHS or Q6hrs while NPO * Goal Range: Low 110 mg/dL - High 140 mg/dL * Correction Factor: 20 mg/dL/unit * Nutritional / Prandial insulin per carb ratio of 1 unit per 5 grams CHO consumed
[2023-01-13] MEDS ORDERED: LANTUS PER UNIT CHARGE SC SCH ×3 (17:00→21:00)
[2023-01-13] MEDS: ceFAZolin 2000MG 2,000 MG/15 ML SYR IV SCH (17:45)
[2023-01-13] MEDS: DOCUSATE SODIUM/SENNA 50/8.6MG TAB PO SCH (20:59)
[2023-01-13] MEDS: hydroCHLOROthiazide 25 MG TAB PO SCH (20:59)
[2023-01-13] MEDS: FAMOTIDINE 40 MG TABLET PO SCH (20:59)
[2023-01-13] MEDS: LEVOTHYROXINE SODIUM 112 MCG TABLET PO SCH (20:59)
[2023-01-13] MEDS: FENOFIBRATE NANOCRYSTALLIZED 145 MG TABLET PO SCH (20:59)
[2023-01-13] MEDS: SERTRALINE HCL 100 MG TABLET PO SCH (20:59)
[2023-01-13] MEDS: allopurinoL 100 MG TAB PO SCH (20:59)
[2023-01-13] MEDS: METOPROLOL SUCC 50MG EXT REL TAB PO SCH (21:00)
[2023-01-13] MEDS ORDERED: PIOGLITAZONE HCL 15 MG TAB PO SCH (21:00)
[2023-01-13] MEDS: ROSUVASTATIN CALCIUM 20 MG TAB PO SCH (21:00)
[2023-01-13] MEDS: lamoTRIgine 100 MG TAB PO SCH (21:16)
[2023-01-13] MEDS: oxyCODONE HCL IR 5 MG TAB (IMMEDIATE RELEASE) PO PRN (21:23)
[2023-01-13] MEDS: HYDROmorphone INJ 1 MG/ML SYRINGE IV PRN (23:16)
[2023-01-14] MEDS: ceFAZolin 2000MG 2,000 MG/15 ML SYR IV SCH (00:26)
[2023-01-14] MEDS: INSULIN ASPART PER UNIT CHARGE SC SCH ×6 (00:27→20:49)
[2023-01-14] MEDS: SODIUM CHLORIDE 0.9% 1000ML 1,000 ML IV SCH (03:03)
[2023-01-14] MEDS: HYDROmorphone INJ 1 MG/ML SYRINGE IV PRN ×3 (03:24→21:58)
[2023-01-14] MEDS: POLYETHYLENE (MIRALAX) 17 GM PACK PO SCH ×4 (05:52→21:58)
[2023-01-14 06:21] LABS: Basophils # (auto) 0.01 K/uL (0-0.2); Basophils % (auto) 0.1 %; Eosinophils # (auto) 0.01 K/uL (0-0.50); Eosinophils % (auto) 0.1 %; Hematocrit (blood only) 33.5 % (37.0-47.0); Hemoglobin 10.9 g/dl (12.0-16.0); Immature Granulocytes # (auto) 0.06 K/uL (0.01-0.20); Immature Granulocytes % (auto) 0.6 %; Lymphocytes # (auto) 1.25 K/uL (1.2-3.4); Lymphocytes % (auto) 11.7 %; Mean Corpuscular Hemoglobin 29.9 pg (25.0-34.0); Mean Corpuscular Hgb Conc 32.5 g/dL (32.0-36.0); Mean Platelet Volume 10.7 fL (9.4-12.4); Monocytes # (auto) 0.99 K/uL (0.11-0.59); Monocytes % (auto) 9.3 %; Neutrophils # (auto) 8.32 K/uL (1.40-6.50); Neutrophils % (auto) 78.2 %; Platelet Count 235 K/uL (130-400); RDW Coefficient of Variation 13.9 % (11.5-14.5); RDW Standard Deviation 46.8 fL (36.4-46.3); Red Blood Count 3.64 M/uL (4.20-5.40); White Blood Count 10.64 K/ul (4.8-10.8)
[2023-01-14 06:49] LABS: BUN Creatinine Ratio 26.4 (10-20); Calcium 8.3 mg/dl (8.6-10.3); Creatinine Clr Calc Pharmacy 41.7 ml/min; Est GFR (Non-African American) 32.8 ml/min; Potassium 4.2 mmol/L (3.5-5.1)
[2023-01-14] MEDS: oxyCODONE HCL IR 5 MG TAB (IMMEDIATE RELEASE) PO PRN (07:28)
[2023-01-14] MEDS: FAMOTIDINE 40 MG TABLET PO SCH ×2 (07:28→20:25)
[2023-01-14] MEDS ORDERED: HYDROCODONE/ACETAMOPHEN 5/325MG TAB PO PRN ×2 (08:44)
--- NOTE | 2023-01-14 08:44 | Orthopedic Progress Note ---
Date of Service January 14, 2023 Assessment & Plan (1) Neurogenic claudication due to lumbar spinal stenosis: Plan: This time initiate physical therapy monitor JEANNETTE output hopefully discharge home in the next few days. I will transition her from oxycodone to hydrocodone. Admission and Anticipated Discharge Date Admission Date: January 13, 2023 Subjective Back pain controlled leg pain markedly improved Physical Exam Physical Exam: Patient is in bed. She is sitting up. She is comfortable. Discussing the testing. Results & Data Vital Signs (Past 12 Hours) Vital Signs Temp Pulse Resp BP Pulse Ox O2 Del Method 01/14/23 08:00 Room Air 01/14/23 07:34 36.6 C 81 18 130/68 95 Room Air 01/14/23 03:00 36.6 C 78 18 110/64 96 Room Air 01/13/23 23:00 36.4 C L 83 18 102/61 93 Room Air 01/13/23 20:56 84 119/69
--- NOTE | 2023-01-14 08:47 | Pharmacy Report ---
Pharmacy Glycemic Short Note 2 - Date of Service January 14, 2023 - Glycemic Short BSG Results (Last 24 hours): 01/13/23 01/13/23 01/13/23 09:04 11:25 13:38 Glucose POC Glucose 123 H 131 H 140 H 01/13/23 01/13/23 01/14/23 16:58 20:50 00:23 Glucose POC Glucose 161 H 170 H 164 H 01/14/23 01/14/23 01/14/23 04:29 05:58 08:05 Glucose 142 H POC Glucose 148 H 115 H OUTPATIENT ANTIDIABETIC REGIMEN: * Levemir 25 units HS * Actos 15 mg PO daily * Victoza 0.6 mg SC daily * HbA1C = 6.3% (12/31/22) ASSESSMENT: 01/14: * Patient received 42 units of insulin yesterday, 35 units basal + 7 units bolus. BSGs were: [phone] mg/dL. * Fasting BSG this AM is 115 mg/dL, well controlled. No further steroids ordered and expect steroid-induced hyperglycemia to wear off over the next 24 hours. Will reduce basal to home dose today which is an approximate 30% reduction in basal dose. * Basal may need further reduced tomorrow given most recent A1c. * No change to bolus insulin regimen today. 01/13: * Ms Colby is a 67 y/o F with a PMH of T2DM who presents for spinal surgery. * Preop BSG was 123 mg/dL and postop BSG was 140 mg/dL. Patient is sedated after surgery. * Patient received dexamethasone 12 mg IV during surgery. * Since patient was sedated, will hold NPH. Move Lantus to dinnertime with a higher dose available for BSGs trending upwards after steroid administration. * Novolog weight-based stress 3 for steroid coverage. PLAN FOR INPATIENT GLYCEMIC CONTROL: * Hold outpatient oral diabetes medications * Basal insulin * Lantus 25 units SC HS * Bolus insulin * NovoLog per scale ACHS or Q6hrs while NPO * Goal Range: Low 110 mg/dL - High 140 mg/dL * Correction Factor: 20 mg/dL/unit * Nutritional / Prandial insulin per carb ratio of 1 unit per 5 grams CHO consumed
[2023-01-14] MEDS ORDERED: NON-FORMULARY MEDICATION (Liraglutide [Victoza 2-Pak] 0.6 mg/0.1 mL (18 mg/3 mL) Pen Injec SQ SCH (09:00)
--- NOTE | 2023-01-14 16:05 | Hospitalist Progress Note ---
Date of Service January 14, 2023 Assessment & Plan (1) Neurogenic claudication due to lumbar spinal stenosis: (2) Diabetes mellitus, type 2: (3) HTN (hypertension): (4) Hypothyroidism: (5) Chronic kidney disease, stage 3: (6) GERD (gastroesophageal reflux disease): Plan 67 year old female that presented to the [facility] today for an elective procedure under the care of Dr. Oconnor after failed conservative management for persistent back pain. She underwent an L4-L5 decompression and fusion surgery today. Intra-operatively, patient had 100 EBL. In the PACU, patient received Fentanyl 100mcg and Ativan 2 mg for pain. Pt is lying in her hospital bed in no apparent distress. She is snoring and somnolent; difficult to arouse, but once aroused she is able to answer some simple questions. She is on 3LNC and SpO2 93- 94%, will continue continuous pulse ox until more awake. Pt at bedside and able to answer all questions. Patient appears more puffy compared to typical presentation; not unusual postoperative. Patient does not wear a CPAP at home at baseline. Additional PMH includes: Gout, IDDM2, HTN, HLD, Hypothyroidism, and depression. Neurogenic claudication due to lumbar spinal stenosis: POD#1 s/p L4-L5 decompression fusion with Dr. Oconnor. Per ortho for pain control, wound care, anticoagulation and activities. Monitor H&H, preop hemoglobin 12.7 from 12/31 EBL 100 mL continue incentive spirometry when awake PT/OT when appropriate Minimal pain at the back and denies any other symptoms Management as per Ortho Diabetes mellitus type 2: Insulin-dependent Preop A1c 6.3 Takes Levemir, continue Takes Actos, and Victoza; hold while inpatient FSBS ACHS SSI while inpatient No acute issues HTN: Takes HCTZ and metoprolol; continue Normotensive postoperatively Blood pressure remains on the lower side at 109/55 HLD: Takes rosuvastatin; continue Hypothyroidism: Takes levothyroxine; continue Follow TSH as an outpatient Continue replacement CKD stage III: Preop creatinine 1.42; trend with a.m. labs We will monitor PRP and also CBC Stable as of today advised to drink more fluidd GERD: Takes famotidine; continue Gout: Takes allopurinol; continue Depression: Takes sertraline; continue Disposition: PCP: Goran Coden, [employer] CODE STATUS: Full code VTE prophylaxis: Per admitting team I spent a total of 60 minutes coordinating, documenting, and providing care for this patient excluding time spent in the performance of separately billed services. All of the aforementioned completed while collaborating with the assigned attending physician for a full treatment plan. Please see their addendum for further details. Admission and Anticipated Discharge Date Admission Date: January 13, 2023 Subjective 01/14/2023 The patient was seen in the medical floor in presence of the family members She complains to have some back pain status post lumbar surgery Denies any other significant symptoms Review of Systems Review of Systems: All systems reviewed and are unremarkable except as noted below Musculoskeletal: Back pain Physical Exam Physical Exam: Lying in bed comfortably Constitutional: well developed, well nourished, + ill appearing and + obese Eyes: PERRL, conjunctivae normal, anicteric sclerae ENMT: external ear and nose normal, oropharynx normal Neck: trachea midline, no thyromegaly Respiratory: no respiratory distress Auscultation: lungs clear to auscultation bilaterally Cardiovascular: Rate/Rhythm: regular rate and regular rhythm; not tachycardic Heart Sounds: normal S1 and normal S2; no murmur Extremities: no edema (Trace edema bilaterally) Gastrointestinal (Abdomen): Inspection/Auscultation: normal bowel sounds; abdomen not distended Percussion/Palpation: abdomen soft; abdomen nontender Musculoskeletal: Back pain and tenderness without any acute arthritis in any other joint Neurologic: normal touch/pain/proprioception and moves all extremities; no focal motor deficits Psychiatric: A+Ox3, euthymic affect Lymphatic: no cervical or axillary lymphadenopathy Results & Data Results & Data Vital Signs (Past 12 Hours) Vital Signs Temp Pulse Resp BP Pulse Ox O2 Del Method 01/14/23 12:04 36.5 C 72 18 109/55 L 96 Room Air 01/14/23 08:00 Room Air 01/14/23 07:34 36.6 C 81 18 130/68 95 Room Air Laboratory Results Short CBC 01/14/23 Range/Units 05:58 WBC 10.64 (4.8-10.8) K/ul Hgb 10.9 L (12.0-16.0) g/dl Hct 33.5 L (37.0-47.0) % Plt Count 235 (130-400) K/uL BMP 01/14/23 05:58 Sodium 136 Potassium 4.2 Chloride 104 Carbon Dioxide 24 BUN 42 H Creatinine 1.59 H Glucose 142 H Calcium 8.3 L Medications Administered Current Inpatient Medications Acetaminophen (Acetaminophen 500 Mg Tab) 1,000 mg PO Q8H PRN PRN Reason: MILD Pain Scale 1,2,3 & Pre PT Stop: 02/12/23 12:52 Hydrocodone Bitart/Acetaminophen (Hydrocodone/Acetamophen 5/325mg Tab) 2 tab PO Q4H PRN PRN Reason: SEVERE Pain (7,8,9,10) Stop: 01/28/23 08:43 Last Admin: 01/14/23 10:18 Dose: 2 tab Hydrocodone Bitart/Acetaminophen (Hydrocodone/Acetamophen 5/325mg Tab) 1 tab PO Q4H PRN PRN Reason: MODERATE Pain (4,5,6) & Pre PT Stop: 01/28/23 08:43 Al Hydrox/Mg Hydrox/Simethicone (Aluminum/Magnesium Susp 30 Ml Udc) 30 ml PO Q6H PRN PRN Reason: Dyspepsia Stop: 02/12/23 12:52 Allopurinol (Allopurinol 100 Mg Tab) 100 mg PO HS ERNESTO Stop: 02/12/23 20:59 Last Admin: 01/13/23 20:59 Dose: 100 mg Bisacodyl (Bisacodyl 10 Mg Supp) 10 mg [place] DAILY PRN PRN Reason: Constipation Stop: 02/12/23 12:52 Dextrose (Dextrose 50% 50 Ml Syringe) 25 - 50 ml IV UD PRN; Protocol PRN Reason: Hypoglycemia Protocol Stop: 02/12/23 13:59 Diphenhydramine HCl (Diphenhydramine Capsule 25 Mg Cap) 25 mg PO Q6H PRN PRN Reason: Allergic Rhinitis/Insomnia Stop: 02/12/23 12:52 Famotidine (Famotidine 40 Mg Tablet) 40 mg PO BID ERNESTO Stop: 02/12/23 20:59 Last Admin: 01/14/23 07:28 Dose: 40 mg Famotidine (Famotidine 20 Mg Tab) 20 mg PO Q12H PRN PRN Reason: Dyspepsia Stop: 02/12/23 12:52 Fenofibrate (Fenofibrate Nanocrystallized 145 Mg Tablet) 145 mg PO HS ERNESTO Stop: 02/12/23 20:59 Last Admin: 01/13/23 20:59 Dose: 145 mg Glucagon (Glucagon For Inj 1 Mg Vial) 1 mg IM UD PRN; Protocol PRN Reason: Hypoglycemia Protocol Stop: 02/12/23 13:59 Glucose (Glucose 40% Gel 15 Gm Tube) 15 - 30 gm PO UD PRN; Protocol PRN Reason: Hypoglycemia Protocol Stop: 02/12/23 13:59 Glucose (Glucose 10 Tab/Tube) 4 - 8 tab PO UD PRN; Protocol PRN Reason: Hypoglycemia Protocol Stop: 02/12/23 13:59 Hydrochlorothiazide (Hydrochlorothiazide 25 Mg Tab) 25 mg PO HS ERNESTO Stop: 02/12/23 20:59 Last Admin: 01/13/23 20:59 Dose: 25 mg Hydromorphone HCl (Hydromorphone Inj 0.5 Mg/0.5 Ml Syr) 0.5 mg IV Q3H PRN PRN Reason: MODERATE Pain (Scale 4,5,6) & Pre PT Stop: 01/27/23 12:52 Hydromorphone HCl (Hydromorphone Inj 1 Mg/Ml Syringe) 1 mg IV Q3H PRN PRN Reason: SEVERE Pain (Scale 7,8,9,10) Stop: 01/27/23 12:52 Last Admin: 01/14/23 13:11 Dose: 1 mg Hydroxyzine HCl (Hydroxyzine Hcl 25 Mg Tab) 25 mg PO Q8H PRN PRN Reason: Anxiety Stop: 02/12/23 12:52 Promethazine HCl 12.5 mg/ (Sodium Chloride) 50.5 mls @ 202 mls/hr IV Q6H PRN PRN Reason: Nausea &/or Vomiting Stop: 02/12/23 12:52 Influenza Virus Vaccine Quadrival (Do Not Administer Flu Vaccine) 1 each N/A PRN PRN PRN Reason: Notification Stop: 02/12/23 12:52 Insulin Aspart (Insulin Aspart Per Unit Charge) 0 units SC [facility]; Protocol Stop: 02/12/23 13:59 Last Admin: 01/14/23 12:26 Dose: Not Given Insulin Glargine (Lantus Per Unit Charge) 15 units SC [facility]; Protocol Stop: 02/12/23 16:59 Lamotrigine (Lamotrigine 100 Mg Tab) 250 mg PO HS ERNESTO Stop: 02/12/23 20:59 Last Admin: 01/13/23 21:16 Dose: 250 mg Levothyroxine Sodium (Levothyroxine Sodium 112 Mcg Tablet) 112 mcg PO [facility] Stop: 02/12/23 20:59 Last Admin: 01/13/23 20:59 Dose: 112 mcg Lorazepam (Lorazepam 0.5 Mg Tab) 0.5 mg PO Q8H PRN PRN Reason: Sedation/Anxiety Stop: 02/12/23 12:52 Lorazepam (Lorazepam 2 Mg/1 Ml Vial) 0.5 mg IV Q8H PRN PRN Reason: Sedation/Anxiety Stop: 02/12/23 12:52 Magnesium Hydroxide (Magnesium Hydroxide Susp 30 Ml Udc) 30 ml PO Q24H PRN PRN Reason: Constipation Stop: 02/12/23 12:52 Metoclopramide HCl (Metoclopramide Hcl Inj 5 Mg/Ml 2 Ml Vial) 10 mg IV Q6H PRN PRN Reason: Nausea &/or Vomiting Stop: 02/12/23 12:52 Metoprolol Succinate (Metoprolol Succ 50mg Ext Rel Tab) 100 mg PO [facility] Stop: 02/12/23 20:59 Last Admin: 01/13/23 21:00 Dose: 100 mg Miscellaneous (Carbohydrates For Hypoglycemia ) 15 - 30 gm PO UD PRN PRN Reason: Hypoglycemia Treatment Stop: 02/12/23 13:59 Miscellaneous Information (Pharmacy Glycemic Mgmt Consult) 1 each N/A UD PRN PRN Reason: Consult Stop: 02/12/23 12:52 Naloxone HCl (Naloxone Hcl 0.4 Mg/1 Ml Vial/Carp) 0.1 mg IV Q5M PRN PRN Reason: Oversedation/Resp depression Stop: 02/12/23 12:52 Ondansetron HCl (Ondansetron Inj 2 Mg/Ml 2 Ml Vial) 4 mg IV Q6H PRN PRN Reason: Nausea &/or Vomiting Stop: 02/12/23 12:52 Ondansetron HCl (Ondansetron 4 Mg Od Tab) 4 mg PO Q6H PRN PRN Reason: Nausea Stop: 02/12/23 12:52 Pneumococcal Polyvalent Vaccine (Do Not Administer Pneumococcal Vaccine) 1 each N/A PRN PRN PRN Reason: Notification Stop: 02/12/23 12:52 Polyethylene Glycol (Polyethylene (Miralax) 17 Gm Pack) 17 gm PO Q6 ERNESTO Stop: 02/13/23 05:59 Last Admin: 01/14/23 12:41 Dose: 17 gm Rosuvastatin Calcium (Rosuvastatin Calcium 20 Mg Tab) 20 mg PO HS [facility] Stop: 02/12/23 20:59 Last Admin: 01/13/23 21:00 Dose: 20 mg Senna/Docusate Sodium (Docusate Sodium/Senna 50/8.6mg Tab) 2 tab PO HS ERNESTO Stop: 02/12/23 20:59 Last Admin: 01/13/23 20:59 Dose: 2 tab Sertraline HCl (Sertraline Hcl 100 Mg Tablet) 200 mg PO [facility] Stop: 02/12/23 20:59 Last Admin: 01/13/23 20:59 Dose: 200 mg Sodium Biphosphate/Sodium Phosphate (Sod Phosphate/Sod Biphosphate Enema 132 Ml Btl) 132 ml WV ONE PRN PRN Reason: Constipation Stop: 02/12/23 12:52 Tramadol HCl (Tramadol Hcl 50 Mg Tablet) 50 - 100 mg PO Q4H PRN PRN Reason: Moderate-Severe pain & Pre PT Stop: 02/12/23 12:52
[2023-01-14] MEDS: hydroCHLOROthiazide 25 MG TAB PO SCH (20:25)
[2023-01-14] MEDS: allopurinoL 100 MG TAB PO SCH (20:25)
[2023-01-14] MEDS: METOPROLOL SUCC 50MG EXT REL TAB PO SCH (20:25)
[2023-01-14] MEDS: lamoTRIgine 100 MG TAB PO SCH (20:25)
[2023-01-14] MEDS: SERTRALINE HCL 100 MG TABLET PO SCH (20:25)
[2023-01-14] MEDS: DOCUSATE SODIUM/SENNA 50/8.6MG TAB PO SCH (20:25)
[2023-01-14] MEDS: FENOFIBRATE NANOCRYSTALLIZED 145 MG TABLET PO SCH (20:25)
[2023-01-14] MEDS: ROSUVASTATIN CALCIUM 20 MG TAB PO SCH (20:25)
[2023-01-14] MEDS: LEVOTHYROXINE SODIUM 112 MCG TABLET PO SCH (20:25)
[2023-01-14] MEDS ORDERED: LANTUS PER UNIT CHARGE SC SCH ×2 (21:00)
[2023-01-15] MEDS: POLYETHYLENE (MIRALAX) 17 GM PACK PO SCH ×4 (05:39→23:44)
[2023-01-15 07:14] LABS: Basophils # (auto) 0.02 K/uL (0-0.2); Basophils % (auto) 0.3 %; Eosinophils % (auto) 1.4 %; Hematocrit (blood only) 29.2 % (37.0-47.0); Hemoglobin 9.5 g/dl (12.0-16.0); Immature Granulocytes # (auto) 0.04 K/uL (0.01-0.20); Immature Granulocytes % (auto) 0.6 %; Lymphocytes # (auto) 1.84 K/uL (1.2-3.4); Mean Corpuscular Hemoglobin 29.1 pg (25.0-34.0); Mean Corpuscular Hgb Conc 32.5 g/dL (32.0-36.0); Mean Corpuscular Volume 89.3 fL (80.0-100.0); Mean Platelet Volume 10.9 fL (9.4-12.4); Monocytes # (auto) 0.83 K/uL (0.11-0.59); Monocytes % (auto) 11.7 %; Neutrophils # (auto) 4.25 K/uL (1.40-6.50); Platelet Count 185 K/uL (130-400); RDW Coefficient of Variation 13.9 % (11.5-14.5); RDW Standard Deviation 45.6 fL (36.4-46.3); Red Blood Count 3.27 M/uL (4.20-5.40); White Blood Count 7.08 K/ul (4.8-10.8)
[2023-01-15 07:37] LABS: BUN Creatinine Ratio 28.1 (10-20); Calcium 8.2 mg/dl (8.6-10.3); Creatinine Clr Calc Pharmacy 49.1 ml/min; Est GFR (African American) 46.3 ml/min; Potassium 3.4 mmol/L (3.5-5.1)
[2023-01-15] MEDS: HYDROmorphone INJ 1 MG/ML SYRINGE IV PRN (07:59)
[2023-01-15] MEDS: FAMOTIDINE 40 MG TABLET PO SCH ×2 (08:00→20:33)
[2023-01-15] MEDS: INSULIN ASPART PER UNIT CHARGE SC SCH ×4 (08:32→21:39)
[2023-01-15] MEDS ORDERED: POTASSIUM CHLORIDE CRTAB 20 MEQ TABCR PO STA (09:49)
--- NOTE | 2023-01-15 12:19 | Orthopedic Progress Note ---
Date of Service January 15, 2023 Assessment & Plan (1) Neurogenic claudication due to lumbar spinal stenosis: Plan: At this time we will continue physical therapy monitor JEANNETTE output hopefully discharge home tomorrow. Admission and Anticipated Discharge Date Admission Date: January 13, 2023 Subjective Back pain controlled leg pain markedly improved Physical Exam Physical Exam: Patient is comfortable. She has good strength testing. Results & Data Vital Signs (Past 12 Hours) Vital Signs Temp Pulse Resp BP Pulse Ox O2 Del Method 01/15/23 07:56 37.3 C 75 16 107/63 96 Room Air 01/15/23 05:00 36.6 C 72 16 104/58 L 97 Room Air Queries Orthopedic Spine Acute Posthemorrhagic Anemia: Yes Obesity: Yes
--- NOTE | 2023-01-15 13:07 | Pharmacy Report ---
Pharmacy Glycemic Short Note 2 - Date of Service January 15, 2023 - Glycemic Short BSG Results (Last 24 hours): 01/14/23 01/14/23 01/15/23 17:15 20:45 06:31 Glucose 106 H POC Glucose 152 H 83 01/15/23 01/15/23 01/15/23 08:09 12:07 12:44 Glucose POC Glucose 145 H 64 L* 97 OUTPATIENT ANTIDIABETIC REGIMEN: * Levemir 25 units HS * Actos 15 mg PO daily * Victoza 0.6 mg SC daily * HbA1C = 6.3% (12/31/22) ASSESSMENT: 01/15 * BSGs yesterday were 346-51-343-83 mg/dL. Patient received 32 units of insulin (15 units of basal and 17 units of bolus). * Fasting today is 145 mg/dL. Lunch BSG was slightly hypoglycemic at 64 due to too much carbohydrate coverage. * Due to hypoglycemic event will reduce all insulin. * Decrease basal to 10 units * Loosen Novolog. 01/14: * Patient received 42 units of insulin yesterday, 35 units basal + 7 units bolus. BSGs were: 178-728-224-161-170-164 mg/dL. * Fasting BSG this AM is 115 mg/dL, well controlled. No further steroids ordered and expect steroid-induced hyperglycemia to wear off over the next 24 hours. Will reduce basal to home dose today which is an approximate 30% reduction in basal dose. * Basal may need further reduced tomorrow given most recent A1c. * No change to bolus insulin regimen today. 01/13: * Ms Colby is a 67 y/o F with a PMH of T2DM who presents for spinal surgery. * Preop BSG was 123 mg/dL and postop BSG was 140 mg/dL. Patient is sedated after surgery. * Patient received dexamethasone 12 mg IV during surgery. * Since patient was sedated, will hold NPH. Move Lantus to dinnertime with a higher dose available for BSGs trending upwards after steroid administration. * Novolog weight-based stress 3 for steroid coverage. PLAN FOR INPATIENT GLYCEMIC CONTROL: * Hold outpatient oral diabetes medications * Basal insulin * Lantus 10 units SC HS * Bolus insulin * NovoLog per scale ACHS or Q6hrs while NPO * Goal Range: Low 110 mg/dL - High 140 mg/dL * Correction Factor: 45 mg/dL/unit * Nutritional / Prandial insulin per carb ratio of 1 unit per 20 grams CHO consumed
--- NOTE | 2023-01-15 14:10 | Hospitalist Progress Note ---
Date of Service January 15, 2023 Assessment & Plan (1) Neurogenic claudication due to lumbar spinal stenosis: (2) Diabetes mellitus, type 2: (3) HTN (hypertension): (4) Hypothyroidism: (5) Chronic kidney disease, stage 3: (6) GERD (gastroesophageal reflux disease): Plan 67 year old female that presented to the [facility] today for an elective procedure under the care of Dr. Oconnor after failed conservative management for persistent back pain. She underwent an L4-L5 decompression and fusion surgery today. Intra-operatively, patient had 100 EBL. In the PACU, patient received Fentanyl 100mcg and Ativan 2 mg for pain. Pt is lying in her hospital bed in no apparent distress. She is snoring and somnolent; difficult to arouse, but once aroused she is able to answer some simple questions. She is on 3LNC and SpO2 93- 94%, will continue continuous pulse ox until more awake. Pt at bedside and able to answer all questions. Patient appears more puffy compared to typical presentation; not unusual postoperative. Patient does not wear a CPAP at home at baseline. Additional PMH includes: Gout, IDDM2, HTN, HLD, Hypothyroidism, and depression. Neurogenic claudication due to lumbar spinal stenosis: POD #2 POD#2 s/p L4-L5 decompression fusion with Dr. Oconnor. Per ortho for pain control, wound care, anticoagulation and activities. Monitor H&H, preop hemoglobin 12.7 from 12/31 EBL 100 mL continue incentive spirometry when awake PT/OT when appropriate Minimal pain at the back and denies any other symptoms Management as per Ortho Remains medically stable Acute blood loss anemia Hemoglobin dropped to 9.5 from 12.7 Secondary to blood loss at surgery and is complicated by hydration Expected to improve Diabetes mellitus type 2: Insulin-dependent Preop A1c 6.3 Takes Levemir, continue Takes Actos, and Victoza; hold while inpatient FSBS ACHS SSI while inpatient No acute issues HTN: Takes HCTZ and metoprolol; continue Normotensive postoperatively Blood pressure remains on the lower side at 109/55 Blood pressure remains stable HLD: Takes rosuvastatin; continue Hypothyroidism: Takes levothyroxine; continue Follow TSH as an outpatient Continue replacement CKD stage III: Preop creatinine 1.42; trend with a.m. labs We will monitor PRP and also CBC Stable as of today advised to drink more fluidd GERD: Takes famotidine; continue Gout: Takes allopurinol; continue Depression: Takes sertraline; continue Disposition: PCP: EVA Contreras CODE STATUS: Full code VTE prophylaxis: Per admitting team Medically stable Admission and Anticipated Discharge Date Admission Date: January 13, 2023 Subjective 01/14/2023 The patient was seen in the medical floor in presence of the family members She complains to have some back pain status post lumbar surgery Denies any other significant symptoms 01/15/2023 The patient was seen and examined in the medical floor in presence of the She has been stable with some back pain but denies any other symptoms Likely to be discharged tomorrow by the primary service Bowel is not moved yet has been getting medications for the Review of Systems Review of Systems: All systems reviewed and are unremarkable except as noted below Musculoskeletal: Back pain Physical Exam Physical Exam: Lying in bed comfortably Constitutional: well developed, well nourished, + ill appearing and + obese Eyes: PERRL, conjunctivae normal, anicteric sclerae ENMT: external ear and nose normal, oropharynx normal Neck: trachea midline, no thyromegaly Respiratory: no respiratory distress Auscultation: lungs clear to auscultation bilaterally Cardiovascular: Rate/Rhythm: regular rate and regular rhythm; not tachycardic Heart Sounds: normal S1 and normal S2; no murmur Extremities: no edema (Trace edema bilaterally) Gastrointestinal (Abdomen): Inspection/Auscultation: normal bowel sounds; abdomen not distended Percussion/Palpation: abdomen soft; abdomen nontender Musculoskeletal: No acute arthritis involving any of the joint. Does have some back pain without radiation Neurologic: normal touch/pain/proprioception and moves all extremities; no focal motor deficits Psychiatric: A+Ox3, euthymic affect Lymphatic: no cervical or axillary lymphadenopathy Results & Data Results & Data Vital Signs (Past 12 Hours) Vital Signs Temp Pulse Resp BP Pulse Ox O2 Del Method 01/15/23 07:56 37.3 C 75 16 107/63 96 Room Air 01/15/23 05:00 36.6 C 72 16 104/58 L 97 Room Air Laboratory Results Short CBC 01/15/23 Range/Units 06:31 WBC 7.08 (4.8-10.8) K/ul Hgb 9.5 L (12.0-16.0) g/dl Hct 29.2 L (37.0-47.0) % Plt Count 185 (130-400) K/uL BMP 01/15/23 06:31 Sodium 138 Potassium 3.4 L Chloride 104 Carbon Dioxide 28 BUN 38 H Creatinine 1.35 H Glucose 106 H Calcium 8.2 L Medications Administered Current Inpatient Medications Acetaminophen (Acetaminophen 500 Mg Tab) 1,000 mg PO Q8H PRN PRN Reason: MILD Pain Scale 1,2,3 & Pre PT Stop: 02/12/23 12:52 Al Hydrox/Mg Hydrox/Simethicone (Aluminum/Magnesium Susp 30 Ml Udc) 30 ml PO Q6H PRN PRN Reason: Dyspepsia Stop: 02/12/23 12:52 Allopurinol (Allopurinol 100 Mg Tab) 100 mg PO HS ERNESTO Stop: 02/12/23 20:59 Last Admin: 01/14/23 20:25 Dose: 100 mg Bisacodyl (Bisacodyl 10 Mg Supp) 10 mg [place] DAILY PRN PRN Reason: Constipation Stop: 02/12/23 12:52 Dextrose (Dextrose 50% 50 Ml Syringe) 25 - 50 ml IV UD PRN; Protocol PRN Reason: Hypoglycemia Protocol Stop: 02/12/23 13:59 Diphenhydramine HCl (Diphenhydramine Capsule 25 Mg Cap) 25 mg PO Q6H PRN PRN Reason: Allergic Rhinitis/Insomnia Stop: 02/12/23 12:52 Famotidine (Famotidine 40 Mg Tablet) 40 mg PO BID ERNESTO Stop: 02/12/23 20:59 Last Admin: 01/15/23 08:00 Dose: 40 mg Famotidine (Famotidine 20 Mg Tab) 20 mg PO Q12H PRN PRN Reason: Dyspepsia Stop: 02/12/23 12:52 Fenofibrate (Fenofibrate Nanocrystallized 145 Mg Tablet) 145 mg PO HS ERNESTO Stop: 02/12/23 20:59 Last Admin: 01/14/23 20:25 Dose: 145 mg Glucagon (Glucagon For Inj 1 Mg Vial) 1 mg IM UD PRN; Protocol PRN Reason: Hypoglycemia Protocol Stop: 02/12/23 13:59 Glucose (Glucose 40% Gel 15 Gm Tube) 15 - 30 gm PO UD PRN; Protocol PRN Reason: Hypoglycemia Protocol Stop: 02/12/23 13:59 Glucose (Glucose 10 Tab/Tube) 4 - 8 tab PO UD PRN; Protocol PRN Reason: Hypoglycemia Protocol Stop: 02/12/23 13:59 Hydrochlorothiazide (Hydrochlorothiazide 25 Mg Tab) 25 mg PO [facility] Stop: 02/12/23 20:59 Last Admin: 01/14/23 20:25 Dose: 25 mg Hydromorphone HCl (Hydromorphone Inj 0.5 Mg/0.5 Ml Syr) 0.5 mg IV Q3H PRN PRN Reason: MODERATE Pain (Scale 4,5,6) & Pre PT Stop: 01/27/23 12:52 Hydromorphone HCl (Hydromorphone Inj 1 Mg/Ml Syringe) 1 mg IV Q3H PRN PRN Reason: SEVERE Pain (Scale 7,8,9,10) Stop: 01/27/23 12:52 Last Admin: 01/15/23 07:59 Dose: 1 mg Hydromorphone HCl (Hydromorphone Hcl 2 Mg Tab) 2 mg PO Q4 PRN PRN Reason: Pain Stop: 01/29/23 10:44 Hydroxyzine HCl (Hydroxyzine Hcl 25 Mg Tab) 25 mg PO Q8H PRN PRN Reason: Anxiety Stop: 02/12/23 12:52 Promethazine HCl 12.5 mg/ (Sodium Chloride) 50.5 mls @ 202 mls/hr IV Q6H PRN PRN Reason: Nausea &/or Vomiting Stop: 02/12/23 12:52 Influenza Virus Vaccine Quadrival (Do Not Administer Flu Vaccine) 1 each N/A PRN PRN PRN Reason: Notification Stop: 02/12/23 12:52 Insulin Aspart (Insulin Aspart Per Unit Charge) 0 units SC [facility]; Protocol Stop: 02/12/23 13:59 Last Admin: 01/15/23 12:13 Dose: Not Given Insulin Glargine (Lantus Per Unit Charge) 10 units SC [facility]; Protocol Stop: 02/14/23 20:59 Lamotrigine (Lamotrigine 100 Mg Tab) 250 mg PO [facility] Stop: 02/12/23 20:59 Last Admin: 01/14/23 20:25 Dose: 250 mg Levothyroxine Sodium (Levothyroxine Sodium 112 Mcg Tablet) 112 mcg PO [facility] Stop: 02/12/23 20:59 Last Admin: 01/14/23 20:25 Dose: 112 mcg Lorazepam (Lorazepam 0.5 Mg Tab) 0.5 mg PO Q8H PRN PRN Reason: Sedation/Anxiety Stop: 02/12/23 12:52 Lorazepam (Lorazepam 2 Mg/1 Ml Vial) 0.5 mg IV Q8H PRN PRN Reason: Sedation/Anxiety Stop: 02/12/23 12:52 Magnesium Hydroxide (Magnesium Hydroxide Susp 30 Ml Udc) 30 ml PO Q24H PRN PRN Reason: Constipation Stop: 02/12/23 12:52 Metoclopramide HCl (Metoclopramide Hcl Inj 5 Mg/Ml 2 Ml Vial) 10 mg IV Q6H PRN PRN Reason: Nausea &/or Vomiting Stop: 02/12/23 12:52 Metoprolol Succinate (Metoprolol Succ 50mg Ext Rel Tab) 100 mg PO [facility] Stop: 02/12/23 20:59 Last Admin: 01/14/23 20:25 Dose: 100 mg Miscellaneous (Carbohydrates For Hypoglycemia ) 15 - 30 gm PO UD PRN PRN Reason: Hypoglycemia Treatment Stop: 02/12/23 13:59 Miscellaneous Information (Pharmacy Glycemic Mgmt Consult) 1 each N/A UD PRN PRN Reason: Consult Stop: 02/12/23 12:52 Naloxone HCl (Naloxone Hcl 0.4 Mg/1 Ml Vial/Carp) 0.1 mg IV Q5M PRN PRN Reason: Oversedation/Resp depression Stop: 02/12/23 12:52 Ondansetron HCl (Ondansetron Inj 2 Mg/Ml 2 Ml Vial) 4 mg IV Q6H PRN PRN Reason: Nausea &/or Vomiting Stop: 02/12/23 12:52 Ondansetron HCl (Ondansetron 4 Mg Od Tab) 4 mg PO Q6H PRN PRN Reason: Nausea Stop: 02/12/23 12:52 Pneumococcal Polyvalent Vaccine (Do Not Administer Pneumococcal Vaccine) 1 each N/A PRN PRN PRN Reason: Notification Stop: 02/12/23 12:52 Polyethylene Glycol (Polyethylene (Miralax) 17 Gm Pack) 17 gm PO Q6 ERNESTO Stop: 02/13/23 05:59 Last Admin: 01/15/23 12:13 Dose: 17 gm Rosuvastatin Calcium (Rosuvastatin Calcium 20 Mg Tab) 20 mg PO [facility] Stop: 02/12/23 20:59 Last Admin: 01/14/23 20:25 Dose: 20 mg Senna/Docusate Sodium (Docusate Sodium/Senna 50/8.6mg Tab) 2 tab PO [facility] Stop: 02/12/23 20:59 Last Admin: 01/14/23 20:25 Dose: 2 tab Sertraline HCl (Sertraline Hcl 100 Mg Tablet) 200 mg PO [facility] Stop: 02/12/23 20:59 Last Admin: 01/14/23 20:25 Dose: 200 mg Sodium Biphosphate/Sodium Phosphate (Sod Phosphate/Sod Biphosphate Enema 132 Ml Btl) 132 ml [place] ONE PRN PRN Reason: Constipation Stop: 02/12/23 12:52 Tramadol HCl (Tramadol Hcl 50 Mg Tablet) 50 - 100 mg PO Q4H PRN PRN Reason: Moderate-Severe pain & Pre PT Stop: 02/12/23 12:52
[2023-01-15] MEDS: HYDROmorphone HCL 2 MG TAB PO PRN ×2 (17:04→20:40)
[2023-01-15] MEDS: lamoTRIgine 100 MG TAB PO SCH (20:27)
[2023-01-15] MEDS: FENOFIBRATE NANOCRYSTALLIZED 145 MG TABLET PO SCH (20:27)
[2023-01-15] MEDS: SERTRALINE HCL 100 MG TABLET PO SCH (20:32)
[2023-01-15] MEDS: DOCUSATE SODIUM/SENNA 50/8.6MG TAB PO SCH (20:33)
[2023-01-15] MEDS: allopurinoL 100 MG TAB PO SCH (20:33)
[2023-01-15] MEDS: LEVOTHYROXINE SODIUM 112 MCG TABLET PO SCH (20:33)
[2023-01-15] MEDS: ROSUVASTATIN CALCIUM 20 MG TAB PO SCH (20:34)
[2023-01-15] MEDS: hydroCHLOROthiazide 25 MG TAB PO SCH (20:43)
[2023-01-15] MEDS: METOPROLOL SUCC 50MG EXT REL TAB PO SCH (20:44)
[2023-01-15] MEDS ORDERED: LANTUS PER UNIT CHARGE SC SCH (21:00)
[2023-01-16] MEDS: HYDROmorphone INJ 1 MG/ML SYRINGE IV PRN ×3 (01:20→09:21)
[2023-01-16] MEDS: POLYETHYLENE (MIRALAX) 17 GM PACK PO SCH (05:35)
[2023-01-16] MEDS: FAMOTIDINE 40 MG TABLET PO SCH (08:11)
--- NOTE | 2023-01-16 09:09 | Discharge Summary ---
Date of Service January 16, 2023 Principal Diagnosis Lumbar spinal stenosis with neurogenic claudication Discharge Data Allergies Allergy/AdvReac Type Severity Reaction Status Date / Time povidone-iodine Allergy Intermediate blisters Verified 01/13/23 08:40 [From Betadine] (with prolonged use) Consultations 01/13/23 12:53 Consult Hospitalist Routine Procedures Performed Operation Date: 01/13/23 09:35 Actual Procedures p L4-L5 Decompression and Fusion, Spinal Cord Monitoring(Not Applicable) - Richard Oconnor DO Ordered Studies 01/13/23 09:35 [place] lumbar spine 2-3V Routine Hospital Course (1) Neurogenic claudication due to lumbar spinal stenosis: Patient with lumbar decompression fusion tolerated this well was taken orthopedic for postoperative. Postop day 1 she was up and ambulating progress postop day #2 on postop day 3 pain was controlled JEANNETTE drain decreasing probably. Excellent strength testing. Separately discharged home. Discharge orders and instructions found in chart for further review. Total Time Total Time Spent Total Time Spent (In Minutes): 20 minutes Discharge Plan Discharge Items Patient Disposition: Home - Self-Care Reason For Visit: Spinal Stenosis, Lumbar Region with Neurogenic Cla Discharge Diagnosis: Lumbar spinal stenosis with neurogenic claudication Activity: As commented below Non-emergency contact: Primary Care Provider Call non-emergency contact if: you have any medication questions Follow-up/Referrals: Goran Rodriguez CRNP [Primary Care Provider] - Diet: Regular Addtl Attending Provider Instructions: ACTIVITY RECOMMENDATIONS: SELF CARE INSTRUCTIONS AFTER THORACIC/LUMBAR FUSIONS 1. You may walk to your tolerance. It is good exercise for your legs and back. Expect some back and intermittent leg aches and pains. 2. You may perform "counter-top" level activities (make a sandwich, brittany with a project, etc.). 3. No bending or lifting of more than 10 pounds or back twisting of any nature (roll like a log when turning in bed). 4. You may ride in a car for 20-30 minutes at a time. No driving until after your first visit with your doctor. 5. Frequent changes of position and restricting sitting to 30 minutes at a time will help limit the amount of back spasms and stiffness you may experience. 6. You may discontinue the use of ambulatory aids (cane, crutches, etc.) once your strength and confidence allow. 7. You may continuous churn buttermaker the shower and let water strike your incision when you arrive home at least once daily. Do not take a tub bath, sit in a hot tub or go into a swimming pool until after your first recheck in the office. SPECIAL CARE INSTRUCTIONS: VERY IMPORTANT TO READ AND REVIEW A. Your surgical incision has been closed with a cosmetic suture under the skin that will dissolve in about 6 weeks. In 14 days, you can use a pair of clean scissors and cut the suture that is left outside of the skin at the ends of your incision. 1. The small skin tapes can be removed 7 days after surgery if they have not fallen off by that point. 2. You may keep the wound open to air as much as possible to promote healing after post-op day number 5 unless told otherwise by your doctor. 3. If you think the wound looks like it is becoming infected (redness or worsening drainage) and/or you are experiencing fever, chill or worsening back pain and muscle spasms, contact the office so that we may evaluate you as soon as possible. B. Complications are uncommon, but please contact us if you have any signs or symptoms of: 1. wound infection (fever higher than 102.5 degrees F, redness, separation of wound, drainage, or increasing pain from the incision) 2. blood clots in legs (pain, swelling, redness and warmth in legs) 3. urinary tract infection (fever higher than 102.5 degrees F, burning upon urination or increased frequency of urination) 4. nerve problems (inability to walk on your toes or heels, numbness, loss of bowel or bladder control) 5. any other symptoms that concern you C. Please call the office at if you have any concerns or questions about your operation or recovery. D. No smoking! Smoking drastically decreases the chance of a solid fusion. E. Do not take any anti-inflammatory medications (Indocin, Advil, Motrin, Aspirin, Naprosyn, etc.) as these may inhibit the chance of a solid fusion. Tylenol is okay to take for pain. MANAGING PAIN AFTER SPINAL SURGERY 1. Narcotic medication is intended for short-term use and will be provided for surgical pain. Surgical pain usually lasts for a period of 4-6 weeks. Narcotic medication includes Percocet, Vicodin, Darvocet, Tylenol #3 or Lortab. 2. Longer-term pain is more appropriately treated with non-narcotic medication such as Tylenol ES. 3. Muscle spasm is not appropriately treated with narcotics. Muscle relaxers such as Soma, Flexeril or Skelaxin can be used along with Tylenol ES. 4. Remember that we all live with some "aches and pains". This is not unusual or uncommon after an injury or as we get older. a. Back pain is expected and may include muscle spasms for 4 to 6 weeks after surgery. The pain should gradually improve. If the pain worsens for no apparent reason, please contact the office. b. Intermittent leg pain may also be experienced and should not be concerned about unless it worsens for no apparent reason. If so, please contact the office. 5. We will provide appropriate medication within the normal guidelines of their prescribed use. We will also be very cautious and aware of potential abuse and extended duration of patients' medication needs. a. Pain medications are for your comfort and to assist with sleep and rest so that the tissue can heal. They are not provided in order to return to normal activity and should not be used through the day. To do so or worsening pain at night can result from ongoing tissue damage and development of tolerance to the prescribed medicine. 6. Please allow 2-3 days to process refills. Prescriptions will not be mailed but must be picked up at the office. FOLLOW UP VISIT: Keep your scheduled follow-up appointment. Any questions, please call the office at . Pending Studies at Discharge: No Stand-Alone Forms: [facility], Smoking Cessation Medications and DC Order Prescriptions: New tramadol 50 mg tablet 50 mg PO Q6H PRN (Reason: pain, moderate) Qty: 30 0RF oxycodone 5 mg tablet 5 mg PO Q6H PRN (Reason: pain) Qty: 30 0RF Continued pioglitazone 15 mg Tablet 15 mg PO HS famotidine 40 mg Tablet 40 mg PO BID metoprolol succinate 100 mg Tablet Extended Release 24 Hr 100 mg PO HS allopurinol 100 mg Tablet 100 mg PO HS hydrochlorothiazide 25 mg Tablet 25 mg PO HS levothyroxine 112 mcg Tablet 112 mcg PO HS rosuvastatin 20 mg Tablet 20 mg PO HS Levemir FlexPen 100 unit/mL (3 mL) Insulin Pen 25 unit SUBCUT HS fenofibrate nanocrystallized [Tricor] 145 mg Tablet 145 mg PO HS Victoza 2-Omar 0.6 mg/0.1 mL (18 mg/3 mL) Pen Injector 0.6 mg SUBCUT QAM lamotrigine 250 mg Tablet Extended Release 24hr 250 mg PO HS sertraline 200 mg Capsule 200 mg PO HS baclofen 20 mg Tablet 20 mg PO BID PRN (Reason: Muscle Pain) hydroxyzine HCl 10 mg Tablet 10 mg PO BID melatonin 10 mg Tablet 20 mg PO HS PRN (Reason: Sleep) Discharge Orders: Discharge Order (Routine); Ordered 01/16/23 Ordered By: Richard Oconnor Admission Data Admit Date/Time: 01/13/23 11:13 Attending Provider: Richard Oconnor Admit Provider: Richard Oconnor Primary Care Provider: Goran Rodriguez Other Providers: Susanne Bear ; Hortencia Cullen ; Richard Oconnor ; Patt Nielsne
[2023-01-16] MEDS: INSULIN ASPART PER UNIT CHARGE SC SCH (09:20)
--- NOTE | 2023-01-16 14:03 | Hospitalist Progress Note ---
Date of Service January 16, 2023 Assessment & Plan (1) Neurogenic claudication due to lumbar spinal stenosis: (2) Diabetes mellitus, type 2: (3) HTN (hypertension): (4) Hypothyroidism: (5) Chronic kidney disease, stage 3: (6) GERD (gastroesophageal reflux disease): Plan Pt discharged by primary service before being seen. Admission and Anticipated Discharge Date Admission Date: January 13, 2023 Subjective Pt discharged by primary service before being seen. Results & Data Results & Data Vital Signs (Past 12 Hours) Vital Signs Temp Pulse Pulse Pulse Resp BP Pulse Ox 01/16/23 09:31 36.8 C 73 78 72 16 112/68 94 01/16/23 07:39 36.8 C 72 16 112/68 94 O2 Del Method 01/16/23 09:31 01/16/23 07:39 Room Air
== END 2023-01-16 11:14 | disposition home or self-care (01) | DRG 454 ==
LOC: ASU 08:25 → 3E 11:13 → SUATTDRO 11:13

== ENCOUNTER 2023-10-02 07:53 | Inpatient (IN) ==
--- NOTE | 2023-09-16 10:51 | PAT Medication Instructions ---
Medication Instructions Date of Service September 16, 2023 Home Medications Medication Instructions Recorded tramadol 50 mg tablet 50 mg PO Q6H PRN pain, moderate 01/13/23 #30 tabs allopurinol 100 mg tablet 100 mg PO HS famotidine 40 mg tablet 40 mg PO BID fenofibrate nanocrystallized 145 mg tablet (Tricor) 145 mg PO HS hydrochlorothiazide 25 mg tablet 25 mg PO HS hydroxyzine HCl 10 mg tablet 10 mg PO BID PRN Anxiety insulin detemir U-100 100 unit/mL (3 mL) subcutaneous pen (Levemir FlexPen) 25 unit subcut QAM lamotrigine 250 mg tablet,extended release 24 hr 250 mg PO HS levothyroxine 112 mcg tablet 112 mcg PO HS melatonin 10 mg tablet 20 mg PO HS PRN Sleep pioglitazone 15 mg tablet 15 mg PO HS rosuvastatin 20 mg tablet 20 mg PO HS sertraline 200 mg capsule 200 mg PO HS tramadol 50 mg tablet 50 mg PO Q6H PRN pain, moderate cholecalciferol (vitamin D3) 50 mcg (2,000 unit) capsule (Vitamin D3) 50 mcg PO DAILY STOP taking 48 hours before surgery fenofibrate nanocrystallized 145 mg tablet (Tricor) 145 mg PO HS DO NOT take the morning of surgery hydroxyzine HCl 10 mg tablet 10 mg PO BID PRN Anxiety cholecalciferol (vitamin D3) 50 mcg (2,000 unit) capsule (Vitamin D3) 50 mcg PO DAILY Take morning of surgery With a small sip of water, OTHERWISE NOTHING TO EAT OR DRINK AFTER MIDNIGHT: famotidine 40 mg tablet 40 mg PO BID tramadol 50 mg tablet 50 mg PO Q6H PRN pain, moderate (if needed) Take evening before surgery allopurinol 100 mg tablet 100 mg PO HS famotidine 40 mg tablet 40 mg PO BID hydrochlorothiazide 25 mg tablet 25 mg PO HS hydroxyzine HCl 10 mg tablet 10 mg PO BID PRN Anxiety (if needed) lamotrigine 250 mg tablet,extended release 24 hr 250 mg PO HS levothyroxine 112 mcg tablet 112 mcg PO HS melatonin 10 mg tablet 20 mg PO HS PRN Sleep (if needed) pioglitazone 15 mg tablet 15 mg PO HS rosuvastatin 20 mg tablet 20 mg PO HS sertraline 200 mg capsule 200 mg PO HS tramadol 50 mg tablet 50 mg PO Q6H PRN pain, moderate (if needed) Insulin Dependent Diabetic Patients * Test your blood sugar the morning of surgery * If Blood Sugar is GREATER THAN 150, take HALF of your regular dose of: insulin detemir U-100 100 unit/mL (3 mL) subcutaneous pen (Levemir FlexPen) > take 12 units * If Blood Sugar is LESS THAN 150, DO NOT TAKE ANY: insulin detemir U-100 100 unit/mL (3 mL) subcutaneous pen (Levemir FlexPen) Other Notes If you have any questions please call us at [phone] or [phone] or [phone] or [phone]
--- NOTE | 2023-09-18 13:25 | Anesthesiology Consultation ---
Date of Service September 18, 2023 Assessment & Plan (1) Encounter for pre-operative examination: - Check BSG AM DOS - Infectious disease screening: Per assessment on 09/18/23: No known infectious disease contacts or current infectious disease symptoms. No noted recent Covid positive test result. - Cardiology visit (11/07/22): "Prior to this visit metoprolol succinate has been increased to 100mg daily for complaints of palpitations/SVT. She did note improvement.. ECG reviewed. This indicates sinus rhythm with heart rate of 71. Poor Rwave progression is noted but not new.. Palpitations/SVT remained well controlled with use of beta amanda.. No evidence of volume overload or heart failure.. An echocardiogram will be obtained prior to her next office visit to reevaluate EF and wall motion." 1 year follow-up recommended. - S/P L4-5 Decompression/fusion (01/13/23): Grade 2 view, Tam #2, ETT 7.0 at [facility] Chart Review Chart Review: Acceptable Risk for Surgery and Patient seen in Pre Admission Testing Teaching & Discussion Pre-Anesthesia Teaching/Discussion Notes: Instructed NPO after midnight before surgery,except medications with 15 cc of water. Medication instructions provided according to the PAT guidelines. History Surgery Operation Date: 10/02/23 07:45 Proposed Procedures p L4-L5 Revision Decompression and Fusion, Spinal Cord Monitoring - Richard Oconnor DO Height/Weight Height: 5 ft 5 in Weight: 117.5 kg Allergies Allergy/AdvReac Type Severity Reaction Status Date / Time povidone-iodine Allergy Intermediate blisters Verified 01/13/23 08:40 [From Betadine] (with prolonged use) adhesive AdvReac Severe removes Verified 09/16/23 09:43 skin Medications Home Medications Medication Instructions Recorded Confirmed Last Taken allopurinol 100 mg tablet 100 mg PO HS 12/30/22 09/16/23 01/12/23 22:30 famotidine 40 mg tablet 40 mg PO BID 12/30/22 09/16/23 01/13/23 07:00 fenofibrate nanocrystallized 145 145 mg PO HS 12/30/22 09/16/23 01/11/23 mg tablet (Tricor) hydrochlorothiazide 25 mg tablet 25 mg PO HS 12/30/22 09/16/23 01/12/23 22:30 hydroxyzine HCl 10 mg tablet 10 mg PO BID PRN Anxiety 12/30/22 09/16/23 Unknown insulin detemir U-100 100 unit/mL 25 unit subcut QAM 12/30/22 09/16/23 01/12/23 22:30 (3 mL) subcutaneous pen (Levemir FlexPen) lamotrigine 250 mg tablet,extended 250 mg PO HS 12/30/22 09/16/23 01/12/23 22:30 release 24 hr levothyroxine 112 mcg tablet 112 mcg PO HS 12/30/22 09/16/23 01/12/23 22:30 melatonin 10 mg tablet 20 mg PO HS PRN Sleep 12/30/22 09/16/23 01/11/23 pioglitazone 15 mg tablet 15 mg PO HS 12/30/22 09/16/23 01/12/23 22:30 rosuvastatin 20 mg tablet 20 mg PO HS 12/30/22 09/16/23 01/12/23 22:30 sertraline 200 mg capsule 200 mg PO HS 12/30/22 09/16/23 01/12/23 22:30 tramadol 50 mg tablet 50 mg PO Q6H PRN pain, moderate 01/13/23 09/16/23 Unknown #30 tabs cholecalciferol (vitamin D3) 50 50 mcg PO DAILY 09/16/23 09/16/23 Unknown mcg (2,000 unit) capsule (Vitamin D3) Past Medical History Medical History Anxiety and depression Arthritis Bipolar disorder Chronic kidney disease, stage 3 Diabetes mellitus, type 2 IDDM GERD (gastroesophageal reflux disease) History of COVID-19 Dx 10/10/22 (home test), symptoms resolved HTN (hypertension) Hyperlipidemia Hypothyroidism Migraine SVT (supraventricular tachycardia) Follows with Lily Corrales Exercise / Class Metabolic Activity II 4-5 Yardwork/Stairs/Walk up hill (one FS: No CP, no SOB) Past Family History Family History Other No family history of adverse response to anesthesia Past Surgical History Surgical History Fusion of spine cervical (good rom) H/O total hysterectomy History of appendectomy History of arthroscopy R/L knee History of bunionectomy + neuroma removed from right History of section x2 History of cholecystectomy History of colonoscopy History of ear surgery Right ear x5 (fistulas removed) History of lumbar spinal fusion 01/2023 Dr Oconnor, [facility] History of tonsillectomy and adenoidectomy History of tooth extraction Neuroma removed left foot Past Anesthesia History No Hx of Anesthesia Complications and No Family Hx of Anesthesia Complications History of PONV No Hx of PONV and No Hx of Motion Sickness Social History Smoking Status: Never smoker Do You Dip or Chew Tobacco: No Hx Alcohol Use: No Hx Substance Use: No substance use type: does not use Review of Systems Rare palpitations. Patient denies chest pain, shortness of breath, dyspnea on exertion, fever, chills, cough, wheezing. Physical Exam Vital Signs BP 111/67 P 79 TEMP 98.3 SP02 95%RA RESP 16 Physical Full cervical extension range of motion. Full TMJ range of motion. TMD 3.5 finger breaths Mallampati Score 2 Dentition: intact Lungs: clear throughout to auscultation Cardiac: regular rate and rhythm, no murmurs noted Spine: normal Carotid arteries: negative bruit Extremities: no LE edema Short, thick neck Lab Results Anesthesia Preop Results Results Anesthesia Widget: WBC 4.52 K/ul (4.8-10.8) L 09/18/23 Hgb 12.8 g/dl (12.0-16.0) 09/18/23 Hct 40.2 % (37.0-47.0) 09/18/23 Plt 269 K/uL (130-400) 09/18/23 Na 139 mmol/L (136-145) 09/18/23 K 3.9 mmol/L (3.5-5.1) 09/18/23 Cl 100 mmol/L (98-107) 09/18/23 CO2 32 mmol/L (21-32) 09/18/23 BUN 31 mg/dl (6-23) H 09/18/23 Creat 1.25 mg/dl (0.6-1.2) H 09/18/23 Glucose Level 158 mg/dl (70-99(Fasting)) H 09/18/23 PT 10.8 Seconds (9.0-12.0) 09/18/23 PTT 30 Seconds (21-31) 09/18/23 INR 1.0 (0.9-1.1) 09/18/23 HA1c 7.1 % (4.5-5.6) H 09/18/23 Urine Color Yellow 09/18/23 Urine Appearance Clear (Clear) 09/18/23 Urine pH 6.5 (4.5-7.5) 09/18/23 Urine Specific [place] 1.023 (1.000-1.030) 09/18/23 Urine Protein Negative (Negative) 09/18/23 Urine Glucose (UA) Negative (Negative) 09/18/23 Urine Ketones Negative (Negative) 09/18/23 Urine Blood Negative (Negative) 09/18/23 Urine Nitrite Negative (Negative) 09/18/23 Urine Bilirubin Negative (Negative) 09/18/23 Urine Urobilinogen Negative (Negative) 09/18/23 Urine Leukocyte Esterase 2+ (Negative) H 09/18/23 Urine WBC (Auto) >30 /hpf (0-5) H 09/18/23 Urine RBC (Auto) 5-10 /hpf (0-4) H 09/18/23 Urine Hyaline Casts (Auto) 1-5 /lpf (0-5) 09/18/23 Urine Epithelial Cells (Auto) >30 /lpf (0-5) H 09/18/23 Urine Bacteria (Auto) Negative (Negative) 09/18/23 Blood Type O Positive 09/18/23 Antibody Screen NEGATIVE 09/18/23 Testing Electrocardiogram Date: 11/07/22 SR at 71bpm. PRWP. Chest X-Ray Date: 12/31/22 FINDINGS: PA and lateral chest radiographs are obtained. No prior studies are available for comparison at the time of dictation. The cardiomediastinal silhouette is unremarkable noting atherosclerotic calcification of the thoracic aorta. The lungs and pleural spaces are clear. There is no pneumothorax. The skeletal structures are osteopenic. The bony thorax appears intact. Fusion hardware is seen in the lower cervical spine. Cholecystectomy clips are noted in the right upper quadrant. IMPRESSION: No active disease in the chest.
[2023-10-02] MEDS ORDERED: ONDANSETRON INJ 2 MG/ML 2 ML VIAL IV PRN (08:21)
[2023-10-02] MEDS ORDERED: ATROPINE SULFATE 0.1 MG/ML 10ML SYR IV PRN (08:21)
[2023-10-02] MEDS ORDERED: PROMETHAZINE HCL 6.25 MG in SODIUM CHLORIDE 0.9% 50 ML IV PRN (08:21)
[2023-10-02] MEDS ORDERED: fentaNYL citrate PF 100 MCG/2 ML VIAL ONE (08:45)
[2023-10-02] MEDS ORDERED: MIDAZOLAM HCL 1 MG/ML 2ML VIAL ONE (08:45)
[2023-10-02] MEDS: GABAPENTIN 300 MG CAP PO SCH (08:54)
[2023-10-02] MEDS: LR 15ML/HR IV SCH (08:54)
[2023-10-02] MEDS: ACETAMINOPHEN 500 MG TAB PO SCH (08:54)
[2023-10-02] MEDS: LR 60ML/HR IV SCH (08:54)
[2023-10-02] MEDS: CeleBREX 200 MG CAP PO SCH (08:54)
--- NOTE | 2023-10-02 09:09 | History & Physical Bridge Note ---
Date of Service October 02, 2023 History & Physical Bridge Note I have examined the patient, reviewed the History & Physical and in the interval since the performance of the History & Physical I have noted the following changes of clinical significance: no changes noted
--- NOTE | 2023-10-02 09:10 | History & Physical Report ---
Date of Service October 02, 2023 Assessment & Plan (1) Neurogenic claudication due to lumbar spinal stenosis: Plan: L4-5 revision decompression and fusion History of Present Illness Chief Complaint: Back and left leg pain Primary Care Provider: EVA Edmonds This is a 68-year-old female who presents with worsening back and left leg pain and evidence of loosening of instrumentation from her L4-5 fusion is here for revision. Allergies Allergy/AdvReac Type Severity Reaction Status Date / Time povidone-iodine Allergy Intermediate blisters Verified 10/02/23 08:17 [From Betadine] (with prolonged use) tramadol Allergy Intermediate Itching Verified 10/02/23 08:23 adhesive AdvReac Severe removes Verified 10/02/23 08:17 skin Home Medications Medication Instructions Recorded Confirmed Type allopurinol 100 mg tablet 100 mg PO HS 12/30/22 10/02/23 History famotidine 40 mg tablet 40 mg PO BID 12/30/22 10/02/23 History fenofibrate nanocrystallized 145 145 mg PO HS 12/30/22 10/02/23 History mg tablet (Tricor) hydrochlorothiazide 25 mg tablet 25 mg PO HS 12/30/22 10/02/23 History hydroxyzine HCl 10 mg tablet 10 mg PO BID PRN Anxiety 12/30/22 10/02/23 History insulin detemir U-100 100 unit/mL 25 unit subcut QAM 12/30/22 10/02/23 History (3 mL) subcutaneous pen (Levemir FlexPen) lamotrigine 250 mg tablet,extended 250 mg PO HS 12/30/22 10/02/23 History release 24 hr levothyroxine 112 mcg tablet 112 mcg PO HS 12/30/22 10/02/23 History melatonin 10 mg tablet 20 mg PO HS PRN Sleep 12/30/22 10/02/23 History pioglitazone 15 mg tablet 15 mg PO HS 12/30/22 10/02/23 History rosuvastatin 20 mg tablet 20 mg PO HS 12/30/22 10/02/23 History sertraline 200 mg capsule 200 mg PO HS 12/30/22 10/02/23 History tramadol 50 mg tablet 50 mg PO Q6H PRN pain, moderate 01/13/23 10/02/23 Rx #30 tabs cholecalciferol (vitamin D3) 50 50 mcg PO DAILY 09/16/23 10/02/23 History mcg (2,000 unit) capsule (Vitamin D3) Past Med/Surg History Medical History Anxiety and depression Arthritis Bipolar disorder Chronic kidney disease, stage 3 Diabetes mellitus, type 2 IDDM GERD (gastroesophageal reflux disease) History of COVID-19 Dx 10/10/22 (home test), symptoms resolved HTN (hypertension) Hyperlipidemia Hypothyroidism Migraine SVT (supraventricular tachycardia) Follows with Lily Corrales Surgical History Fusion of spine cervical (good rom) H/O total hysterectomy History of appendectomy History of arthroscopy R/L knee History of bunionectomy + neuroma removed from right History of section x2 History of cholecystectomy History of colonoscopy History of ear surgery Right ear x5 (fistulas removed) History of lumbar spinal fusion 01/2023 Dr Oconnor, [facility] History of tonsillectomy and adenoidectomy History of tooth extraction Neuroma removed left foot Family History Other No family history of adverse response to anesthesia Social History Smoking Status: Never smoker Second Hand Exposure: Yes (as a child); Do You Dip or Chew Tobacco: No; Tobacco Cessation Education Requested by Patient: No Hx Alcohol Use: No Hx Substance Use: No Preferred Language: Bahraini Communication Ability: Effective Nonprofit Fundraiser Required: No Beliefs That Will Affect Care: None Current Living Situation: Spouse Other Information That Helps Us Care for You: No Feels Safe at Home: Yes Safety Concerns: Feels Safe At This Time Assistive Devices: None Physical Exam Physical Exam: Patient is alert and oriented Heart regular in rhythm Lungs clear Results & Data Results & Data Vital Signs (Past 12 Hours) Vital Signs Temp Pulse Resp BP Pulse Ox O2 Del Method 10/02/23 08:24 Room Air 10/02/23 08:24 36.5 C 73 18 167/78 H 93 Room Air
[2023-10-02] MEDS ORDERED: PROPOFOL IV EMULSION 10 MG/ML 20 ML VIAL IV ONE (09:16)
[2023-10-02] MEDS ORDERED: ONDANSETRON INJ 2 MG/ML 2 ML VIAL ONE (09:17)
[2023-10-02] MEDS ORDERED: SUGAMMADEX SODIUM 200 MG/2 ML VIAL IV ONE (09:17)
[2023-10-02] MEDS ORDERED: DEXAMETHASONE SOD INJ 4 MG/ML VIAL ONE (09:17)
[2023-10-02] MEDS ORDERED: ROCURONIUM BROMIDE 10 MG/ML 5 ML VIAL IV ONE (09:17)
[2023-10-02] MEDS: ceFAZolin 2000MG 2,000 MG/15 ML SYR IV SCH ×2 (09:35→16:51)
[2023-10-02] MEDS: BUPIVACAINE/EPINEPHRINE 0.5% MPF 1:200,000 30 ML VIAL ONE (10:17)
[2023-10-02] MEDS ORDERED: HYDROmorphone INJ 2 MG/ML SYR/VIAL ONE (10:25)
[2023-10-02] MEDS ORDERED: WATER, STERILE FOR INJ 10 ML VIAL ONE (10:26)
[2023-10-02] MEDS ORDERED: ePHEDrine sulfate 50 MG/5 ML SYR ONE (10:53)
[2023-10-02] MEDS: ceFAZolin 330 MG/ML 1 GM VIAL ONE (11:16)
[2023-10-02] MEDS: FLOSEAL HEMOSTATIC MATRIX 10ML TOP ONE (11:17)
--- NOTE | 2023-10-02 11:45 | Operative Report ---
Post Operative Report Pre & Post Diagnosis Operation Date: 10/02/23 09:25 Pre-Op Diagnosis: Neurogenic claudication due to lumbar spinal stenosis Failed instrumentation L4-L5 Morbid obesity Post-Op Diagnosis: same I identified the patient and participated in the time-out.: Yes Procedure Operation Date: 10/02/23 09:25 Actual Procedure 1. Removal of posterior instrumentation L4-5. #2 exploration of fusion L4-5 #3 revision decompression L4-5. #4 revision fusion L4-5 and #5 placement of posterior instrumentation L4-5 #6 revision interbody cage placement L4-5 and #7 placement infuse collagen sponge combined with Koros bone graft and posterior gutters. Surgeon Richard Oconnor, DO Industrial Hygiene Manager none Estimated Blood Loss 50 Findings See Below Patient is 5 foot 5 weighing over 117 kg with a BMI of 43. Patient's body habitus did create significant technical difficulty with positioning exposure and the procedure itself adding least 50% postoperative time. Specimens none Indications This is a 68-year-old female who presents with above-mentioned diagnosis after failing course of nonoperative care is here for revision surgery. Description of Procedure Patient is met identified informed was obtained. Patient was then taken to the operative suite underwent patient placed in a prone position the Banner table top Sergey frame. Operative prominences well-padded eyes inspected to ensure no external press placed problem. The lumbar spine was then prepped and draped in a sterile fashion. Sharp dissection with the assistance of Bovie cautery was then performed down to and exposing the remaining lamina and instrumentation at L4-5 bilaterally. Self-retaining tractors placed. Then proceeded move the hardware bilaterally noticing gross loosening of all pedicle screws. They were replaced with larger screws with much better fixation. #4 and revision. Az ctomy L4-L5 on the left to remove any overgrowth of scar tissue in the traversing and exiting nerve roots. I then localized the interbody cage which had retropulsed approximately 4 to 5 mm posteriorly. I was able to reposition this anteriorly. Rods were then placed compressed and locked into position bilaterally. The transverse processes of L4-5 were then burred to subcortically bone. Infuse collagen sponge combined with Koros was placed in the posterior gutters. 15 round JEANNETTE inserted. The incision was then closed with 1 Vicryl the fascia 2-0 Vicryl subcutaneously and 4 Monocryl for final closure. Steri-Strips sterile dressings placed. Patient waken taken to PACU in stable condition. Please note spinal cord monitoring visualized at the procedure no changes noted. I attest to the content of the Intraoperative Record and any orders documented therein. Any exceptions are noted below.
[2023-10-02] MEDS: HYDROmorphone INJ 1 MG/ML SYRINGE IV PRN ×2 (11:55→20:28)
--- NOTE | 2023-10-02 12:06 | Fluoroscopy Report ---
INTRAOPERATIVE RADIOGRAPHS CLINICAL HISTORY: Lumbar spinal fusion surgery. Fluoro time: 22 seconds Ka,r: 22.21 mGy FINDINGS: 2 spot fluoroscopic views of the lumbar spine are presented. There as been discectomy at L4 -L5 with laminectomy and posterior fusion at this level. Interpedicular screws are in place. The orth opedic hardware appears intact. IMPRESSION: Intraoperative images from lumbar spinal fusion surgery as above. Electronically signed by: Ayo Joseph M.D. 10/02/2023 12:05 PM
[2023-10-02] MEDS: HYDROmorphone INJ 0.5 MG/0.5 ML SYR IV PRN (12:15)
--- NOTE | 2023-10-02 13:08 | Anesthesiology Progress Note ---
Date of Service October 02, 2023 Anesthesia Post Procedure Vital Signs Vital Signs: Temp Pulse Pulse Resp BP BP Pulse Ox 10/02/23 13:00 70 12 123/63 96 10/02/23 12:50 67 10 L 120/59 L 94 10/02/23 12:40 75 19 133/61 94 10/02/23 12:30 80 22 111/62 96 10/02/23 12:20 81 14 154/72 H 94 10/02/23 12:10 78 19 151/69 H 95 10/02/23 12:00 80 20 143/79 H 97 10/02/23 11:50 36.0 C L 81 14 152/71 H 96 10/02/23 08:24 10/02/23 08:24 36.5 C 73 18 167/78 H 93 O2 Del Method O2 Flow Rate 10/02/23 13:00 Nasal Cannula 3 10/02/23 12:50 Nasal Cannula 3 10/02/23 12:40 Nasal Cannula 3 10/02/23 12:30 Nasal Cannula 3 10/02/23 12:20 Nasal Cannula 3 10/02/23 12:10 Nasal Cannula 3 10/02/23 12:00 Nasal Cannula 3 10/02/23 11:50 Oxymask 6 10/02/23 08:24 Room Air 10/02/23 08:24 Room Air Pain Intensity Left Back: Pain Intensity: 7 Transfer of Care Handoff Completed per policy Notes Mental Status: alert / awake / arousable Patient Amnestic to Procedure: Yes Nausea / Vomiting: adequately controlled Pain: adequately controlled Airway Patency, RR, SpO2: stable & adequate BP & HR: stable & adequate Hydration State: stable & adequate Anesthetic Complications: no major complications apparent
[2023-10-02] MEDS: HYDROmorphone INJ 1 MG/ML SYRINGE ONE (15:08)
[2023-10-02] MEDS ORDERED: NALOXONE HCL 0.4 MG/1 ML VIAL/CARP IV PRN (15:28)
[2023-10-02] MEDS ORDERED: HYDROmorphone INJ 0.5 MG/0.5 ML SYR IV PRN (15:28)
[2023-10-02] MEDS ORDERED: diphenhydrAMINE Capsule 25 MG CAP PO PRN (15:28)
[2023-10-02] MEDS ORDERED: bisacodyL 10 MG SUPP PR PRN (15:28)
[2023-10-02] MEDS ORDERED: hydrOXYzine HCl 10 MG TAB PO PRN (15:28)
[2023-10-02] MEDS ORDERED: ACETAMINOPHEN 1,000 MG/100 ML VIAL IV PRN (15:28)
[2023-10-02] MEDS ORDERED: SOD PHOSPHATE/SOD BIPHOSPHATE ENEMA 132 ML BTL PR PRN (15:28)
[2023-10-02] MEDS ORDERED: FAMOTIDINE 20 MG TAB PO PRN (15:28)
[2023-10-02] MEDS ORDERED: LORazepam 0.5 MG TAB PO PRN (15:28)
[2023-10-02] MEDS ORDERED: DO NOT ADMINISTER FLU VACCINE PRN (15:28)
[2023-10-02] MEDS ORDERED: MAGNESIUM HYDROXIDE SUSP 30 ML UDC PO PRN (15:28)
[2023-10-02] MEDS ORDERED: LORazepam 0.5 MG in SYRINGE 0.25 ML IV PRN (15:28)
[2023-10-02] MEDS ORDERED: hydrOXYzine HCl 25 MG TAB PO PRN (15:28)
[2023-10-02] MEDS ORDERED: ONDANSETRON 4 MG OD TAB PO PRN (15:28)
[2023-10-02] MEDS ORDERED: ACETAMINOPHEN 500 MG TAB PO PRN (15:28)
[2023-10-02] MEDS ORDERED: DO NOT ADMINISTER PNEUMOCOCCAL VACCINE PRN (15:28)
[2023-10-02] MEDS ORDERED: ALUMINUM/MAGNESIUM SUSP 30 ML UDC PO PRN (15:28)
[2023-10-02] MEDS: LACTATED RINGER'S 1,000 ML IV SCH (15:37)
[2023-10-02] MEDS ORDERED: PHARMACY GLYCEMIC MGMT CONSULT PRN (15:39)
[2023-10-02] MEDS ORDERED: GLUCOSE 10 TAB/TUBE PO PRN ×2 (16:03→16:15)
[2023-10-02] MEDS ORDERED: DEXTROSE 50% 50 ML SYRINGE IV PRN ×2 (16:03→16:15)
[2023-10-02] MEDS ORDERED: CARBOHYDRATES FOR HYPOGLYCEMIA PO PRN ×2 (16:03→16:15)
[2023-10-02] MEDS ORDERED: GLUCAGON FOR INJ 1 MG VIAL SQ PRN (16:03)
[2023-10-02] MEDS ORDERED: GLUCOSE 40% GEL 15 GM TUBE PO PRN ×2 (16:03→16:15)
[2023-10-02] MEDS ORDERED: GLUCAGON FOR INJ 1 MG VIAL IM PRN (16:15)
[2023-10-02] MEDS ORDERED: MELATONIN 3 MG TAB PO PRN (16:16)
--- NOTE | 2023-10-02 16:20 | Hospitalist Consultation ---
Date of Consultation October 02, 2023 Assessment & Plan (1) Neurogenic claudication due to lumbar spinal stenosis: POD#0 revision L4-L5 decompression and fusion by Dr. Oconnor Activity and wound care orders as per ortho Pain control with bowel regimen PT/OT Monitor H/H for acute blood loss anemia and transfuse blood products PRN EBL 50 cc (2) HTN (hypertension): BP controlled Continue HCTZ (3) Diabetes mellitus, type 2: Hgb A1c 7.1 09/2023 Managed on pioglitazone and Levemir at home Lantus and NovoLog per protocol while hospitalized Glycemic pharmacy consult (4) Hypothyroidism: Chronic, stable Continue levothyroxine (5) Bipolar disorder: Chronic, stable Continue home meds DVT PROPHYLAXIS TEDs/SCDs as per spine Ortho Patient seen in collaboration with Dr. Easley. Thank you for this consultation. We will follow the patient with you during their hospital stay. You can reach a member of the [facility] Team 27/01 via the [facility]ist role in [place] Text. Supervising Physician Co-Signing Physician Notes Patient seen and examined independently. Discussed with over provider. Patient underwent OR with L4-L5 revision decompression and fusion today. She is lying in the bed comfortably; not in any distress. Vitals are stable; saturating well on 3 L of nasal cannula She denies any chest pain, cough or abdominal pain. Pain control as per primary PT OT eval Continue home antihypertensives. Pharmacy consulted for glycemic management I have reviewed the advanced practitioner's documentation, and I agree with, and take responsibility for the plan of care I spent a total of 15 minutes coordinating, documenting, and providing care for this patient excluding time spent in the performance of separately billed services. All of the aforementioned completed while collaborating with the assigned advanced practitioner for a full treatment plan History of Present Illness Reason for Consultation: Postop medical management Requesting Physician: Dr. Oconnor Attending Physician: Richard Oconnor, DO History of Present Illness 68-year-old female with PMH DM type II, HLD, hypothyroidism, bipolar disorder, history of migraines, and other problems listed below who is s/p L4-L5 revision and decompression and fusion today by Dr. Oconnor. History is obtained from the patient. Postoperatively, the patient is doing well. She reports her pain is well-controlled. She denies numbness, tingling, weakness of the lower extremities. No chest pain or shortness of breath. Denies abdominal pain and nausea. Brock catheter is in place draining clear yellow urine. Allergies Allergy/AdvReac Type Severity Reaction Status Date / Time povidone-iodine Allergy Intermediate blisters Verified 10/02/23 08:17 [From Betadine] (with prolonged use) tramadol Allergy Intermediate Itching Verified 10/02/23 08:23 adhesive AdvReac Severe removes Verified 10/02/23 08:17 skin Home Medications Medication Instructions Recorded Confirmed Type allopurinol 100 mg tablet 100 mg PO HS 12/30/22 10/02/23 History famotidine 40 mg tablet 40 mg PO BID 12/30/22 10/02/23 History fenofibrate nanocrystallized 145 145 mg PO HS 12/30/22 10/02/23 History mg tablet (Tricor) hydrochlorothiazide 25 mg tablet 25 mg PO HS 12/30/22 10/02/23 History hydroxyzine HCl 10 mg tablet 10 mg PO BID PRN Anxiety 12/30/22 10/02/23 History insulin detemir U-100 100 unit/mL 25 unit subcut QAM 12/30/22 10/02/23 History (3 mL) subcutaneous pen (Levemir FlexPen) lamotrigine 250 mg tablet,extended 250 mg PO HS 12/30/22 10/02/23 History release 24 hr levothyroxine 112 mcg tablet 112 mcg PO HS 12/30/22 10/02/23 History melatonin 10 mg tablet 20 mg PO HS PRN Sleep 12/30/22 10/02/23 History pioglitazone 15 mg tablet 15 mg PO HS 12/30/22 10/02/23 History rosuvastatin 20 mg tablet 20 mg PO HS 12/30/22 10/02/23 History sertraline 200 mg capsule 200 mg PO HS 12/30/22 10/02/23 History tramadol 50 mg tablet 50 mg PO Q6H PRN pain, moderate 01/13/23 10/02/23 Rx #30 tabs cholecalciferol (vitamin D3) 50 50 mcg PO DAILY 09/16/23 10/02/23 History mcg (2,000 unit) capsule (Vitamin D3) Patient History Medical History HTN (hypertension) Arthritis Chronic kidney disease, stage 3 GERD (gastroesophageal reflux disease) Diabetes mellitus, type 2 IDDM Hypothyroidism Bipolar disorder Anxiety and depression Migraine SVT (supraventricular tachycardia) Follows with [facility] Hyperlipidemia History of COVID-19 Dx 10/10/22 (home test), symptoms resolved Surgical History History of lumbar spinal fusion 01/2023 Dr Oconnor, [facility] Fusion of spine cervical (good rom) H/O total hysterectomy History of bunionectomy + neuroma removed from right Neuroma removed left foot History of arthroscopy R/L knee History of colonoscopy History of section x2 History of appendectomy History of cholecystectomy History of tooth extraction History of tonsillectomy and adenoidectomy History of ear surgery Right ear x5 (fistulas removed) Family History Other No family history of adverse response to anesthesia Social History Smoking Status: Never smoker Second Hand Exposure: Yes (as a child); Do You Dip or Chew Tobacco: No; Tobacco Cessation Education Requested by Patient: No Hx Alcohol Use: No Hx Substance Use: No Preferred Language: Maltese Communication Ability: Effective Dish Washer Required: No Beliefs That Will Affect Care: None Current Living Situation: Spouse Other Information That Helps Us Care for You: No Feels Safe at Home: Yes Safety Concerns: Feels Safe At This Time Assistive Devices: Cane Physical Exam Constitutional: WD/WN, vitals as above no acute distress Eyes: PERRL, conjunctivae normal, anicteric sclerae ENMT: external ear and nose normal, oropharynx normal Respiratory: normal respiratory effort, lungs clear to auscultation Cardiovascular: Rate/Rhythm: regular rate and regular rhythm Vessels: normal peripheral pulses Extremities: no edema Gastrointestinal (Abdomen): normal bowel sounds, soft, nontender, no hepatosplenomegaly Musculoskeletal: S/p back surgery, pedal pushes and pulls strong bilaterally Skin: no rashes, warm and dry Neurologic: PERRL, EOMI, accommodation nl, no face palsy, no dysarthria Psychiatric: Orientation: oriented x 3; + not alert Somewhat lethargic during exam, arouses easily to verbal stimuli however falls back to sleep quickly Results & Data Results & Data Vital Signs (Past 12 Hours) Vital Signs Temp Pulse Pulse Resp BP BP Pulse Ox 10/02/23 15:45 36.6 C 82 16 118/67 94 10/02/23 15:43 10/02/23 15:15 36.7 C 83 16 125/70 94 10/02/23 14:40 86 20 144/68 H 95 10/02/23 14:25 84 12 118/71 94 10/02/23 14:10 82 12 116/69 95 10/02/23 13:50 76 12 134/63 94 10/02/23 13:35 74 12 117/64 94 10/02/23 13:20 69 12 128/59 L 96 10/02/23 13:10 36.7 C 71 15 132/57 L 94 10/02/23 13:00 70 12 123/63 96 10/02/23 12:50 67 10 L 120/59 L 94 10/02/23 12:40 75 19 133/61 94 10/02/23 12:30 80 22 111/62 96 10/02/23 12:20 81 14 154/72 H 94 10/02/23 12:10 78 19 151/69 H 95 10/02/23 12:00 80 20 143/79 H 97 10/02/23 11:50 36.0 C L 81 14 152/71 H 96 10/02/23 08:24 10/02/23 08:24 36.5 C 73 18 167/78 H 93 O2 Del Method O2 Flow Rate 10/02/23 15:45 Nasal Cannula 4 10/02/23 15:43 Nasal Cannula 3 10/02/23 15:15 Nasal Cannula 3 10/02/23 14:40 Nasal Cannula 3 10/02/23 14:25 Nasal Cannula 3 10/02/23 14:10 Nasal Cannula 3 10/02/23 13:50 Nasal Cannula 3 10/02/23 13:35 Nasal Cannula 3 10/02/23 13:20 Nasal Cannula 3 10/02/23 13:10 Nasal Cannula 3 10/02/23 13:00 Nasal Cannula 3 10/02/23 12:50 Nasal Cannula 3 10/02/23 12:40 Nasal Cannula 3 10/02/23 12:30 Nasal Cannula 3 10/02/23 12:20 Nasal Cannula 3 10/02/23 12:10 Nasal Cannula 3 10/02/23 12:00 Nasal Cannula 3 10/02/23 11:50 Oxymask 6 10/02/23 08:24 Room Air 10/02/23 08:24 Room Air
[2023-10-02] MEDS ORDERED: INSULIN ASPART PER UNIT CHARGE SC SCH (16:30)
[2023-10-02] MEDS: INSULIN ASPART PER UNIT CHARGE SC SCH (17:03)
[2023-10-02] MEDS: allopurinoL 100 MG TAB PO SCH (20:31)
[2023-10-02] MEDS: LEVOTHYROXINE SODIUM 112 MCG TABLET PO SCH (20:31)
[2023-10-02] MEDS: FAMOTIDINE 40 MG TABLET PO SCH (20:32)
[2023-10-02] MEDS: DOCUSATE SODIUM/SENNA 50/8.6MG TAB PO SCH (20:32)
[2023-10-02] MEDS: FENOFIBRATE NANOCRYSTALLIZED 145 MG TABLET PO SCH (20:32)
[2023-10-02] MEDS: SERTRALINE HCL 100 MG TABLET PO SCH (20:33)
[2023-10-02] MEDS: hydroCHLOROthiazide 25 MG TAB PO SCH (20:33)
[2023-10-02] MEDS: ROSUVASTATIN CALCIUM 20 MG TAB PO SCH (20:33)
[2023-10-02] MEDS ORDERED: PIOGLITAZONE HCL 15 MG TAB PO SCH (21:00)
[2023-10-02] MEDS: LANTUS PER UNIT CHARGE SC ONE (21:03)
[2023-10-03] MEDS: POLYETHYLENE (MIRALAX) 17 GM PACK PO SCH (04:55)
[2023-10-03 07:11] LABS: Basophils # (auto) 0.02 K/uL (0.00-0.20); Basophils % (auto) 0.2 %; Eosinophils # (auto) 0.05 K/uL (0.00-0.50); Eosinophils % (auto) 0.6 %; Hematocrit (blood only) 35.9 % (37.0-47.0); Hemoglobin 11.3 g/dl (12.0-16.0); Immature Granulocytes # (auto) 0.02 K/uL (0.01-0.20); Immature Granulocytes % (auto) 0.2 %; Lymphocytes # (auto) 1.41 K/uL (1.20-3.40); Lymphocytes % (auto) 17.3 %; Mean Corpuscular Hemoglobin 28.2 pg (25.0-34.0); Mean Corpuscular Hgb Conc 31.5 g/dL (32.0-36.0); Mean Corpuscular Volume 89.5 fL (80.0-100.0); Mean Platelet Volume 10.9 fL (9.4-12.4); Neutrophils # (auto) 5.75 K/uL (1.40-6.50); Neutrophils % (auto) 70.7 %; Platelet Count 210 K/uL (130-400); RDW Coefficient of Variation 15.2 % (11.5-14.5); RDW Standard Deviation 50.3 fL (36.4-46.3); Red Blood Count 4.01 M/uL (4.20-5.40); White Blood Count 8.15 K/ul (4.8-10.8)
[2023-10-03 07:53] LABS: Anion Gap 8 (3-11); BUN Creatinine Ratio 28.2 (10-20); Blood Urea Nitrogen 44 mg/dl (6-23); Calcium 8.8 mg/dl (8.6-10.3); Carbon Dioxide 27 mmol/L (21-32); Chloride 101 mmol/L (98-107); Est GFR (African American) 38.6 ml/min; Est GFR (Non-African American) 33.3 ml/min; Glucose 143 mg/dl (70-99(Fasting)); Sodium 136 mmol/L (136-145)
[2023-10-03] MEDS: oxyCODONE HCL IR 5 MG TAB (IMMEDIATE RELEASE) PO PRN (08:02)
[2023-10-03] MEDS: CHOLECALCIFEROL 25 MCG (1000 UNITS) TAB PO SCH (08:10)
[2023-10-03] MEDS: dexAMETHasone 6 MG in SYRINGE 0 ML IV SCH (08:11)
--- NOTE | 2023-10-03 08:38 | Orthopedic Progress Note ---
Date of Service October 03, 2023 Assessment & Plan (1) Neurogenic claudication due to lumbar spinal stenosis: Plan: At this point we will continue physical therapy monitor JEANNETTE operatively discharged home this weekend. Admission and Anticipated Discharge Date Admission Date: October 02, 2023 Subjective Patient's back pain is controlled left leg symptoms markedly improved Physical Exam Physical Exam: Patient is in bed. She is comfortable. Discussed when to testing. Results & Data Vital Signs (Past 12 Hours) Vital Signs Temp Pulse Resp BP Pulse Ox O2 Del Method O2 Flow Rate 10/03/23 07:31 36.7 C 79 18 113/66 93 Room Air 10/03/23 03:42 36.6 C 77 16 117/70 94 Nasal Cannula 3 10/02/23 23:00 36.7 C 81 14 122/51 L 97 Nasal Cannula 3 Queries Orthopedic Spine Obesity: Yes
[2023-10-03] MEDS: LANTUS PER UNIT CHARGE SC ONE (09:02)
[2023-10-03] MEDS: ONDANSETRON INJ 2 MG/ML 2 ML VIAL IV PRN (11:47)
--- NOTE | 2023-10-03 15:08 | Hospitalist Progress Note ---
Date of Service October 03, 2023 Assessment & Plan (1) Neurogenic claudication due to lumbar spinal stenosis: Plan: POD#1 revision L4-L5 decompression and fusion by Dr. Oconnor Activity and wound care orders as per ortho Pain control with bowel regimen PT/OT EBL 50 cc Postop hemoglobin of 11.3. (2) HTN (hypertension): Plan: BP controlled Continue HCTZ (3) Diabetes mellitus, type 2: Plan: Hgb A1c 7.1 09/2023 Managed on pioglitazone and Levemir at home Lantus and NovoLog per protocol while hospitalized Glycemic pharmacy consult (4) Hypothyroidism: Plan: Chronic, stable Continue levothyroxine (5) Bipolar disorder: Plan: Chronic, stable Continue home meds DVT PROPHYLAXIS TEDs/SCDs as per spine Ortho Please note the above document was generated using voice recognition software. It may contain grammatical, syntax or spelling errors. Any formal questions or concerns about the content, text or information contained within the body of thi s dictation should be directly addressed to the provider for clarification Admission and Anticipated Discharge Date Admission Date: October 02, 2023 Subjective Patient seen and examined at bedside. She is lying on the bed comfortably; not in distress. She reports that her pain is well-tolerated. Denies fever, chills, chest pain or shortness of breath. Review of Systems Review of Systems: All systems reviewed & are unremarkable except as noted in Subjective Physical Exam Physical Exam: Constitutional: Alert oriented x 3; not in distress. Respiratory: Bilateral vesicular breath sound. Cardiovascular: RRR, no murmur, no edema Vessels: no JVD or carotid bruit Chest: normal inspection of chest Abdomen: Soft, nontender Musculoskeletal: no cyanosis or clubbing, extremities motor strength 5/5 Skin: no rashes, warm and dry normal turgor Neurologic: PERRL, EOMI, accommodation nl, no face palsy, no dysarthria CN's II- XI intact bilaterally and moves all extremities Psychiatric: A+Ox3, euthymic affect Results & Data Results & Data Vital Signs (Past 12 Hours) Vital Signs Temp Pulse Resp BP Pulse Ox O2 Del Method O2 Flow Rate 10/03/23 11:13 36.7 C 77 18 132/69 95 Room Air 10/03/23 07:31 36.7 C 79 18 113/66 93 Room Air 10/03/23 03:42 36.6 C 77 16 117/70 94 Nasal Cannula 3
[2023-10-04] MEDS: METOCLOPRAMIDE HCL INJ 5 MG/ML 2 ML VIAL IV PRN (06:25)
--- NOTE | 2023-10-04 08:15 | Orthopedic Progress Note ---
Date of Service October 04, 2023 Assessment & Plan (1) Neurogenic claudication due to lumbar spinal stenosis: Plan: Continue to encourage physical therapy today. Will start some IV fluids to make sure she is hydrated as she is having difficulty tolerating a diet. Admission and Anticipated Discharge Date Admission Date: October 02, 2023 Subjective Patient struggling with some nausea. She denies headaches or photosensitivity. She states her leg symptoms are still markedly improved. Back pain controlled. Physical Exam Physical Exam: On exam she is good strength testing. Abdomen is soft. Results & Data Vital Signs (Past 12 Hours) Vital Signs Temp Pulse Resp BP Pulse Ox O2 Del Method 10/04/23 07:28 37.1 C 83 18 141/67 H 93 Room Air 10/03/23 20:20 37.0 C 79 18 124/75 93 Room Air Queries Orthopedic Spine Obesity: Yes
[2023-10-04] MEDS: SODIUM CHLORIDE 0.9% 1,000 ML IV SCH (08:38)
[2023-10-04] MEDS: LANTUS PER UNIT CHARGE SC SCH (08:50)
[2023-10-04] MEDS: PROMETHAZINE HCL 12.5 MG in SODIUM CHLORIDE 0.9% 50 ML IV PRN (09:25)
--- NOTE | 2023-10-04 09:53 | Pharmacy Report ---
Pharmacy Glycemic Short Note 2 - Date of Service October 04, 2023 - Glycemic Short BSG Results (Last 24 hours): 10/03/23 10/03/23 10/03/23 11:34 16:30 20:14 POC Glucose 159 H 173 H 139 H 10/04/23 10/04/23 04:08 07:48 POC Glucose 142 H 169 H OUTPATIENT ANTIDIABETIC REGIMEN: * Levemir 25 units SC qAM * Pioglitazone 15 mg PO HS HbA1c: 7.1% (09/18/23) ASSESSMENT: * GRACE is a 68 year old female POD #2 s/p lumbar decompression/fusion * Received IV dexamethasone in OR and ordered 6 mg IV daily x 3 doses postoperatively * Blood sugars reasonably controlled since time of surgery, ranging 123-173 mg/dL * Received 24 units of insulin yesterday (10 units of basal and 14 units of prandial/correctional bolus) * Will increase basal today, to be given w/ IV dexamethasone, and will tighten Novolog parameters * Last dose of dexamethasone tomorrow morning PLAN FOR INPATIENT GLYCEMIC CONTROL: * Hold outpatient oral diabetes medications * Basal insulin * Lantus 20 units SQ daily w/ IV dexamethasone * Bolus insulin * NovoLog per scale ACHS or Q6hrs while NPO * Goal Range: Low 110 mg/dL - High 140 mg/dL * Correction Factor: 25 mg/dL/unit * Nutritional / Prandial insulin per carb ratio of 1 unit per 8 grams CHO consumed
--- NOTE | 2023-10-04 14:57 | Hospitalist Progress Note ---
Date of Service October 04, 2023 Assessment & Plan (1) Neurogenic claudication due to lumbar spinal stenosis: Plan: POD#2 revision L4-L5 decompression and fusion by Dr. Oconnor Activity and wound care orders as per ortho Pain control with bowel regimen PT/OT EBL 50 cc Postop hemoglobin of 11.3. PT OT eval Remove Brock, trial of void. (2) HTN (hypertension): Plan: BP controlled Continue HCTZ (3) Diabetes mellitus, type 2: Plan: Hgb A1c 7.1 09/2023 Managed on pioglitazone and Levemir at home Lantus and NovoLog per protocol while hospitalized Glycemic pharmacy consult (4) Hypothyroidism: Plan: Chronic, stable Continue levothyroxine (5) Bipolar disorder: Plan: Chronic, stable Continue home meds DVT PROPHYLAXIS TEDs/SCDs as per spine Ortho Please note the above document was generated using voice recognition software. It may contain grammatical, syntax or spelling errors. Any formal questions or concerns about the content, text or information contained within the body of this dictation should be directly addressed to the provider for clarification Admission and Anticipated Discharge Date Admission Date: October 02, 2023 Subjective Patient reports nausea; unable to eat breakfast today. She reports that the pain is well-controlled. Brock is still in place. Review of Systems Review of Systems: All systems reviewed & are unremarkable except as noted in Subjective Physical Exam Physical Exam: Constitutional: Alert oriented x 3; not in distress. Respiratory: Bilateral vesicular breath sound. Cardiovascular: RRR, no murmur, no edema Vessels: no JVD or carotid bruit Chest: normal inspection of chest Abdomen: Soft, nontender Musculoskeletal: no cyanosis or clubbing, extremities motor strength 5/5 Skin: no rashes, warm and dry normal turgor Neurologic: PERRL, EOMI, accommodation nl, no face palsy, no dysarthria CN's II- XI intact bilaterally and moves all extremities Psychiatric: A+Ox3, euthymic affect Results & Data Results & Data Vital Signs (Past 12 Hours) Vital Signs Temp Pulse Resp BP Pulse Ox O2 Del Method 10/04/23 11:17 Room Air 10/04/23 07:28 37.1 C 83 18 141/67 H 93 Room Air
[2023-10-05] MEDS: LANTUS PER UNIT CHARGE SC SCH (08:50)
--- NOTE | 2023-10-05 11:00 | Discharge Summary ---
Date of Service October 05, 2023 Admission HPI Per Admitting Provider This is a 68-year-old female who presents with worsening back and left leg pain and evidence of loosening of instrumentation from her L4-5 fusion is here for revision. Principal Diagnosis Failed lumbar fusion with radiculopathy Discharge Data Allergies Allergy/AdvReac Type Severity Reaction Status Date / Time povidone-iodine Allergy Intermediate blisters Verified 10/02/23 08:17 [From Betadine] (with prolonged use) tramadol Allergy Intermediate Itching Verified 10/02/23 08:23 adhesive AdvReac Severe removes Verified 10/02/23 08:17 skin Consultations 10/02/23 15:28 Consult Hospitalist Routine Procedures Performed Operation Date: 10/02/23 09:25 Actual Procedures p L4-L5 Revision Decompression and Fusion, Spinal Cord Monitoring(Not Applicable) - Richard Oconnor DO Ordered Studies 10/02/23 07:00 [place] lumbar spine 2-3V Routine Hospital Course (1) Neurogenic claudication due to lumbar spinal stenosis: Patient underwent revision decompression fusion L for L5. Tolerated procedure well went to the orthopedic floor postoperatively postop patient progressed appropriate. Leg pain markedly improved. JEANNETTE drain decreasing appropriately. Excellent strength testing. Subsidy discharged home. Discharge orders instructions from the chart for further review. Total Time Total Time Spent Total Time Spent (In Minutes): 20 minutes Discharge Plan Discharge Items Patient Disposition: Home - Self-Care Reason For Visit: Loosening of Hardware in Spine, Failed Back Syndro Discharge Diagnosis: This department lumbar spine with radiculopathy Activity: As commented below Non-emergency contact: Primary Care Provider Call non-emergency contact if: you have any medication questions Follow-up/Referrals: Goran Rodriguez CRNP [Primary Care Provider] - Diet: Regular Addtl Attending Provider Instructions: ACTIVITY RECOMMENDATIONS: SELF CARE INSTRUCTIONS AFTER THORACIC/LUMBAR FUSIONS 1. You may walk to your tolerance. It is good exercise for your legs and back. Expect some back and intermittent leg aches and pains. 2. You may perform "counter-top" level activities (make a sandwich, brittany with a project, etc.). 3. No bending or lifting of more than 10 pounds or back twisting of any nature (roll like a log when turning in bed). 4. You may ride in a car for 20-30 minutes at a time. No driving until after your first visit with your doctor. 5. Frequent changes of position and restricting sitting to 30 minutes at a time will help limit the amount of back spasms and stiffness you may experience. 6. You may discontinue the use of ambulatory aids (cane, crutches, etc.) once your strength and confidence allow. 7. You may outreach clinician the shower and let water strike your incision when you arrive home at least once daily. Do not take a tub bath, sit in a hot tub or go into a swimming pool until after your first recheck in the office. SPECIAL CARE INSTRUCTIONS: VERY IMPORTANT TO READ AND REVIEW A. Your surgical incision has been closed with a cosmetic suture under the skin that will dissolve in about 6 weeks. In 14 days, you can use a pair of clean scissors and cut the suture that is left outside of the skin at the ends of your incision. 1. The small skin tapes can be removed 7 days after surgery if they have not fallen off by that point. 2. You may keep the wound open to air as much as possible to promote healing after post-op day number 5 unless told otherwise by your doctor. 3. If you think the wound looks like it is becoming infected (redness or worsening drainage) and/or you are experiencing fever, chill or worsening back pain and muscle spasms, contact the office so that we may evaluate you as soon as possible. B. Complications are uncommon, but please contact us if you have any signs or symptoms of: 1. wound infection (fever higher than 102.5 degrees F, redness, separation of wound, drainage, or increasing pain from the incision) 2. blood clots in legs (pain, swelling, redness and warmth in legs) 3. urinary tract infection (fever higher than 102.5 degrees F, burning upon urination or increased frequency of urination) 4. nerve problems (inability to walk on your toes or heels, numbness, loss of bowel or bladder control) 5. any other symptoms that concern you C. Please call the office at if you have any concerns or questions about your operation or recovery. D. No smoking! Smoking drastically decreases the chance of a solid fusion. E. Do not take any anti-inflammatory medications (Indocin, Advil, Motrin, Aspirin, Naprosyn, etc.) as these may inhibit the chance of a solid fusion. Tylenol is okay to take for pain. MANAGING PAIN AFTER SPINAL SURGERY 1. Narcotic medication is intended for short-term use and will be provided for surgical pain. Surgical pain usually lasts for a period of 4-6 weeks. Narcotic medication includes Percocet, Vicodin, Darvocet, Tylenol #3 or Lortab. 2. Longer-term pain is more appropriately treated with non-narcotic medication such as Tylenol ES. 3. Muscle spasm is not appropriately treated with narcotics. Muscle relaxers such as Soma, Flexeril or Skelaxin can be used along with Tylenol ES. 4. Remember that we all live with some "aches and pains". This is not unusual or uncommon after an injury or as we get older. a. Back pain is expected and may include muscle spasms for 4 to 6 weeks after surgery. The pain should gradually improve. If the pain worsens for no apparent reason, please contact the office. b. Intermittent leg pain may also be experienced and should not be concerned about unless it worsens for no apparent reason. If so, please contact the office. 5. We will provide appropriate medication within the normal guidelines of their prescribed use. We will also be very cautious and aware of potential abuse and extended duration of patients' medication needs. a. Pain medications are for your comfort and to assist with sleep and rest so that the tissue can heal. They are not provided in order to return to normal activity and should not be used through the day. To do so or worsening pain at night can result from ongoing tissue damage and development of tolerance to the prescribed medicine. 6. Please allow 2-3 days to process refills. Prescriptions will not be mailed but must be picked up at the office. FOLLOW UP VISIT: Keep your scheduled follow-up appointment. Any questions, please call the office at . Pending Studies at Discharge: No Stand-Alone Forms: [employer], Smoking Cessation Medications and DC Order Prescriptions: New oxycodone 5 mg tablet 5 mg PO Q6H PRN (Reason: pain) Qty: 30 0RF Continued pioglitazone 15 mg Tablet 15 mg PO HS famotidine 40 mg Tablet 40 mg PO BID allopurinol 100 mg Tablet 100 mg PO HS hydrochlorothiazide 25 mg Tablet 25 mg PO HS levothyroxine 112 mcg Tablet 112 mcg PO HS rosuvastatin 20 mg Tablet 20 mg PO HS Levemir FlexPen 100 unit/mL (3 mL) Insulin Pen 25 unit SUBCUT QAM fenofibrate nanocrystallized [Tricor] 145 mg Tablet 145 mg PO HS lamotrigine 250 mg Tablet Extended Release 24hr 250 mg PO HS sertraline 200 mg Capsule 200 mg PO HS hydroxyzine HCl 10 mg Tablet 10 mg PO BID PRN (Reason: Anxiety) melatonin 10 mg Tablet 20 mg PO HS PRN (Reason: Sleep) tramadol 50 mg tablet 50 mg PO Q6H PRN (Reason: pain, moderate) Qty: 30 0RF cholecalciferol (vitamin D3) [Vitamin D3] 50 mcg (2,000 unit) Capsule 50 mcg PO DAILY Discharge Orders: Discharge Order (Routine); Ordered 10/05/23 Ordered By: Richard Oconnor Admission Data Admit Date/Time: 10/02/23 11:49 Attending Provider: Richard Oconnor Admit Provider: Richard Oconnor Primary Care Provider: Goran Rodriguez Other Providers: Susanne Bear
--- NOTE | 2023-10-05 11:35 | Hospitalist Progress Note ---
Date of Service October 05, 2023 Assessment & Plan (1) Neurogenic claudication due to lumbar spinal stenosis: Plan: POD#3 revision L4-L5 decompression and fusion by Dr. Oconnor Activity and wound care orders as per ortho Pain control with bowel regimen PT/OT EBL 50 cc Postop hemoglobin of 11.3. PT OT eval Brock removed Patient is passing gas Required medication for nausea but reports that she is doing better today. (2) HTN (hypertension): Plan: BP controlled Continue HCTZ (3) Diabetes mellitus, type 2: Plan: Hgb A1c 7.1 09/2023 Managed on pioglitazone and Levemir at home Lantus and NovoLog per protocol while hospitalized Glycemic pharmacy consult (4) Hypothyroidism: Plan: Chronic, stable Continue levothyroxine (5) Bipolar disorder: Plan: Chronic, stable Continue home meds DVT PROPHYLAXIS TEDs/SCDs as per spine Ortho Please note the above document was generated using voice recognition software. It may contain grammatical, syntax or spelling errors. Any formal questions or concerns about the content, text or information contained within the body of this dictation should be directly addressed to the provider for clarification Admission and Anticipated Discharge Date Admission Date: October 02, 2023 Subjective Patient seen and examined at bedside. She still reports nausea. She is passing gas. She is ambulating well as well. Review of Systems 2 Review of Systems: All systems reviewed & are unremarkable except as noted in Subjective Physical Exam Physical Exam: Constitutional: Alert oriented x 3; not in distress. Respiratory: Bilateral vesicular breath sound. Cardiovascular: RRR, no murmur, no edema Vessels: no JVD or carotid bruit Chest: normal inspection of chest Abdomen: Soft, nontender Musculoskeletal: no cyanosis or clubbing, extremities motor strength 5/5 Skin: no rashes, warm and dry normal turgor Neurologic: PERRL, EOMI, accommodation nl, no face palsy, no dysarthria CN's II- XI intact bilaterally and moves all extremities Psychiatric: A+Ox3, euthymic affect Results & Data Results & Data Vital Signs (Past 12 Hours) Vital Signs Temp Pulse Resp BP Pulse Ox O2 Del Method 10/05/23 07:17 36.7 C 71 16 108/56 L 98 Room Air
== END 2023-10-05 12:30 | disposition home or self-care (01) | DRG 460 ==
LOC: ASU 07:53 → 3W 11:49